=== PATIENT | female | born 1990 | race Caucasian/White ===

== ENCOUNTER 2020-05-09 10:55 | Outpatient (REF) | payer OTHER, SELFPAY ==
[2020-05-09 11:20] LABS: MANUAL DIFF FLAG NO
[2020-05-09 11:22] LABS: Basophils Absolute Auto 0.1 X10*3/uL (0.0-0.2); Basophils Percent Auto 0.8 % (0-2); Eosinophils Absolute Auto 0.1 X10*3/uL (0.0-0.4); Eosinophils Percent Auto 1.2 % (0-4); Hematocrit 39.6 % (37-47); Hemoglobin 13.3 g/dl (12.0-16.0); Imm Gran Abs Auto 0.01 X10*3/uL (0.00-0.03); Imm Gran Pct Auto 0.2 % (0.0-0.4); Lymphocytes Absolute Auto 1.5 X10*3/uL (1.2-4.9); Lymphocytes Percent Auto 24.4 % (20-40); Mean Corpuscular HGB Conc 33.6 g/dl (31.0-35.0); Mean Corpuscular Hemoglobin 30.5 pg (27.0-33.0); Mean Corpuscular Volume 90.8 fL (80-98); Mean Platelet Volume 10.3 fL (9.4-12.3); Monocytes Absolute Auto 0.5 X10*3/uL (0.1-1.2); Monocytes Percent Auto 7.7 % (2-11); Neutrophils Absolute Auto 3.9 X10*3/uL (2.0-8.3); Neutrophils Percent Auto 65.7 % (45-73); Platelet Count 315 X10*3/uL (160-400); Red Blood Count 4.36 X10*6/uL (4.20-5.50); Red Cell Distribution Width 12.6 % (11.0-16.0); White Blood Count 5.9 X10*3/uL (4.8-10.8)
[2020-05-09 11:41] LABS: Alanine Aminotransferase 13 U/L (0-31); Albumin Level 4.4 g/dL (3.5-5.0); Alkaline Phosphatase 70 U/L (39-117); Anion Gap 11 (12-20); Aspartate Amino Transferase 15 U/L (5-31); Bilirubin Total 0.5 mg/dL (0.0-1.0); Blood Urea Nitrogen 13 mg/dL (9-16); Calcium 9.3 mg/dL (8.4-10.2); Carbon Dioxide 24 mmol/L (22-29); Chloride 108 mmol/L (96-108); Cholesterol 237 mg/dL; Estimated Glomerular Filt Rate > 60; Glucose Fasting 85 mg/dL (60-99); HDL Cholesterol 48 mg/dL; LDL Cholesterol Calculated 177 mg/dl; Potassium 4.4 mmol/l (3.3-5.1); Sodium 139 mmol/L (135-145); Total Protein 7.1 g/dL (6.5-8.0); Triglycerides 62 mg/dL
[2020-05-09 12:02] LABS: Free T4 (Free Thyroxine) 0.93 ng/dL (0.71-1.85); Thyroid Stimulating Hormone 1.96 uIU/mL (0.32-4.0)
== END 2020-05-09 10:56 | disposition home or self-care (01) ==
LOC: HO.LAB 10:55
PROVIDERS: PCP Registered Nurse; Visit Provider Registered Nurse
DX: Z00.00 Encounter for general adult medical examination without abnormal findings (principal); R63.5 Abnormal weight gain; Z13.6 Encounter for screening for cardiovascular disorders
CPT/HCPCS: 36415; 80053; 80061; 84439; 84443; 85025

== ENCOUNTER 2024-07-10 08:28 | Emergency (ER) | payer OTHER, SELFPAY ==
[2024-07-10 08:29] VITALS: BP 146/85; PULSE 98; RESP 20; TEMP 36.8; O2SAT 98; BMI 33.8
--- NOTE | 2024-07-10 14:26 | ED_ITS ---
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 States dog is up-to-date on vaccinations and she personally is up-to-date on vaccinations. Denies injury to other area. Denies vision change/loss Related Data Previous Rx's ?Medication ?Instructions ?Recorded bacitracin 500 unit/gram topical 1 appl topical BID #30 grams 07/10/24 ointment metronidazole 500 mg tablet 500 mg PO Q8H 7 days #21 tabs 07/10/24 sulfamethoxazole 800 1 tab PO Q12H 7 days #14 tabs 07/10/24 mg-trimethoprim 160 mg tablet (Bactrim DS) Allergies Allergy/AdvReac Type Severity Reaction Status Date / Time amoxicillin Allergy Rash Verified 07/10/24 08:32 Review of Systems Review of Systems: Yes all other systems are reviewed and are negative Constitutional: Constitutional: Reports as per HPI [facility] Past Medical History Attestation statement: The following information was validated with the patient. Source: old records reviewed Social History Social History Advance Directives: No Advance Directives Information Provided: Yes Do you have a plan to hurt others: No Plan Physical Exam ED Vital Signs: Vital Signs - 24 hr 07/10/24 08:29 07/10/24 14:36 Temperature 98.2 F 98.2 F Pulse Rate 98 98 Respiratory Rate 20 20 Blood Pressure 146/85 H 146/85 H Pulse Oximetry 98 98 Oxygen Delivery Method Room Air Room Air BMI result Body Mass Index 33.8 Const General: cooperative, healthy appearing and no acute distress Orientation/consciousness: patient oriented x3 Limitations: no limitations HENMT Other: 1.5 cm superficial laceration noted to right cheek, periorbital region. Closed. No active bleeding. no palpable step-off. EOMs intact without discomfort or pain. Head: Yes normal to inspection and Yes atraumatic Ears: hearing grossly normal bilaterally General nose exam: Normal external nose present Face and sinus: Yes normal facial exam Eyes Eyelids: Yes eyelids normal Conjunctivae: conjunctivae normal Pupils: Equal, round and reactive pupils present EOM: EOMs intact bilaterally Direct Ophthalmoscopy: no photophobia Neck Neck: Yes normal visual inspection and Yes no meningeal signs Resp Effort & Inspection: normal respiratory effort and no respiratory distress Cardio Rate: regular rate Neuro General: patient oriented x3, tone normal and no meningeal signs Cranial nerves: Yes CN's II-XII intact bilaterally and Yes Equal, round and reactive pupils present Gait exam (Neuro): Normal gait present Extrem General: Yes normal to inspection Medical Decision Making Medical Decision Making MDM Narrative: 34-year-old female with no significant past medical history presenting to the ED complaining of dog bite to right cheek 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 On exam vital signs stable, NAD, nontoxic appearing, physical exam as noted above. Superficial laceration noted to right cheek with appropriate wound healing at this time, wound closed with scabbing. No active bleeding. No need for wound repair. Patient and dog up-to-date on vaccinations. No evidence of cellulitis Plan: P.o. antibiotics, PCP follow-up Please refer to course for remaining clinical decision making, interpretation of labs/imaging results, and discussions with consultants and/or family members. Differential Diagnosis Differential Diagnoses: The differential diagnosis associated with the presentation includes As above External Record Review External record reviewed: Inpatient record, Office record, Outpatient record, Prior outpatient labs, Prior outpatient radiology, Primary care record and Outside ED record Tests considered The following testing was considered but not selected: As above Prescription Management I considered prescription management with: Antibiotic Chronic Conditions Patient?s care impacted by: Other Social Determinants Patient?s care significantly limited by Social Determinants of Health including: Other Social Determinant of Health Discharge Plan Discharge Clinical Impression: Dog bite Patient Disposition: Home, Self-Care Instructions: Animal Bite (ED) Additional Instructions: Please take Flagyl and Bactrim as prescribed until completion Please use topical antibiotic ointment If area begins look infected, is red, there is pus drainage or you have fever return to the ED Please have close follow-up with your PCP Dog bites have high likelihood of getting infected Once scab is healed apply anti scar cream like Mederma Prescriptions: New sulfamethoxazole-trimethoprim [Bactrim DS] 800-160 mg tablet 1 tab PO Q12H 7 Days Qty: 14 0RF metronidazole 500 mg tablet 500 mg PO Q8H 7 Days Qty: 21 0RF bacitracin 500 unit/gram ointment 1 appl topical BID Qty: 30 0RF Referrals: Philomena Burks PA-C [Primary Care Provider] - 5 days Interventions: ED Discharge Assessment Last Done: 07/10/24 14:36 Discharge Date/Time: 07/10/24 14:37 Print Language: Irish
[2024-07-10 14:36] VITALS: BP 146/85; PULSE 98; RESP 20; TEMP 36.8; O2SAT 98
--- OUTSIDE RECORDS SUMMARY | 2024-07-10 15:47 | XMS_ITS | Data Portability ---
Author Organization [facility], Main Office Address [address] [facility] [address] [place] [address] Care Team Providers Care Paleology Teacher Name Role Phone KATE MIRAMONTES Rn Ambulatory JED BURKS Primary Care Provider [phone] Assessment Encounter Date Assessment Date Assessment LastModified by Organization Details LastModified Time 08/17/2022 08/17/2022 This service was provided using telemedicine. Patient consented to video & audio visit Patient was located in the [facility]. Provider was located in the office. No other persons participated in the telemedicine visit except for the patient unless otherwise indicated here. {{}} Total time of visit was 18 minutes. [email or web address] Not available 08/17/2022 09:57:05 09/28/2022 09/28/2022 This service was provided using telemedicine. Patient consented to video & audio visit Patient was located in the [facility]. Provider was located in the office. No other persons participated in the telemedicine visit except for the patient unless otherwise indicated here. {{}} Total time of visit was 18 minutes. [email or web address] Not available 09/28/2022 10:45:26 12/28/2022 12/28/2022 This service was provided using telemedicine. Patient consented to video & audio visit Patient was located in the [facility]. Provider was located in the office. No other persons participated in the telemedicine visit except for the patient unless otherwise indicated here. {{}} Total time of visit was 16 minutes. [email or web address] Not available 12/28/2022 10:42:29 Plan of Treatment Reminders Order Date Submit Date Provider Last Modified By Organization Details Last Modified Time Details Appointments PE EST 2024 01:00P M Jed Burks PA-C Not available Not available Not available Lab lipid panel , serum 2022 023 [facility], [address], [address], [place], [address], 07/01/2022 13:28:45 CMP, serum or plasm a 2022 023 [email or web address] [facility], [address], [address], [place], [address], 01/27/2023 13:07:47 CBC w/ auto diff 2022 023 [email or web address] [facility], [address], [address], [place], [address], 01/27/2023 13:07:47 TSH, serum or plasm a 2022 023 [facility], [address], [address], [place], [address], 07/01/2022 13:28:46 lipid panel , serum 2023 024 [facility], [address], [address], [place], [address], 07/13/2023 11:22:38 CMP, serum or plasm a 2023 024 [email or web address] [facility], [address], [address], [place], [address], 02/08/2024 09:34:58 CBC w/ auto diff 2023 024 [email or web address] [facility], [address], [address], [place], [address], 02/08/2024 09:34:59 TSH, serum or plasm a 2023 024 [facility], [address], [address], [place], [address], 07/13/2023 11:22:[address] refer ral - brandan rns for ADHD, inatt entio n, diff brandan ntrat ing, finis mariya tasks . has anxie ty and depre ssion / grief . 2023 024 [email or web address] [facility], [address] [facility] [address], [place], [place], [address], 01/09/2024 09:58:35 Procedures None recor ded. Surgeries None recor ded. Imaging None recor ded. Medication Orders hydro xyzin e pamoa te 25 mg capsu le 2022 023 raz [facility] #[id number], [facility] [place], [place], [phone], 09/28/2022 10:36:36 sumat ripta n 50 mg table t 2022 023 [id number], [address] [place], [place], [id number], 08/17/2022 09:52:11 bupro pion HCl XL 150 mg 24 hr table t, exten ded relea se 2022 023 [facility], [address] [place], [place], [id number], 08/17/2022 09:50:40 bupro pion HCl XL 150 mg 24 hr table t, exten ded relea se 2022 023 [facility], [facility] [place], [place], [id number], 09/28/2022 10:45:15 escit alopr am 20 mg table t 2022 023 [facility], [facility] [place], [place], [phone], 12/28/2022 10:41:51 Patient TargetsNo targets recorded. Patient Instructions Encounter Date Encounter Id Patient Instructions Last Modified By Organization Details Last Modified Time 07/01/2022 [id number] adjustment disorder: care instructions [email or web address] Not available 07/01/2022 13:29:43 grief (actual/anticipat ed): care instructions [email or web address] Not available 07/01/2022 13:29:43 call or return for worsening or concerns [email or web address] Not available 07/01/2022 13:29:18 08/17/2022 [id number] anxiety disorder : care instructions [email or web address] Not available 08/17/2022 09:53:01 depression treatment: care instructions [email or web address] Not available 08/17/2022 09:53:01 call or return for worsening or concerns [email or web address] Not available 08/17/2022 09:52:24 09/28/2022 [id number] anxiety disorder : care instructions [email or web address] Not available 09/28/2022 10:45:07 depression treatment: care instructions jthabet Not available 09/28/2022 10:45:07 12/28/2022 [id number] anxiety disorder : care instructions [email or web address] Not available 12/28/2022 10:42:35 depression treatment: care instructions [email or web address] Not available 12/28/2022 10:42:36 To call or retur n for worsening or concerns [email or web address] Not available 12/28/2022 10:42:18 07/13/2023 [id number] adjustment disorder: care instructions jthabet Not available 07/13/2023 11:22:20 grief (actual/anticipat ed): care instructions [email or web address] Not available 07/13/2023 11:22:19 To call or retur n for worsening or concerns [email or web address] Not available 07/13/2023 11:21:20 Reason for Referral Neuropsychologist Referral f or Inattention concerns for ADHD, inattention, diff concentrating, finishing tasks. has anxiety and depression/ grief. Referring Physician: Jed Burks, Family Medicine, Encounter Date: 07/13/2023 Problems Name Problem SNOMED Code Status Onset Date Resolution Date Notes Provider Name and Address Organization Details Recorded Time Anxiety state 034813469 Active 2013 Not Available [facility] 3 08:14:25 Follow-u p encounte r Completed 201204/17/2018 [place] Juan [facility] 8 13:22:04 Adult health examinat ion Active 2013 Not Available [facility] 3 08:14:25 Administ ration of diphther ia and tetanus vaccine Completed 201104/17/2018 AISLIN[place] Juan [facility] 8 13:21:58 Screenin g for malignan t neoplasm of cervix Completed 201304/17/2018 AISLIN[place] Juan [facility] 8 13:22:10 Follow-u wilberto encounte r Completed 201301/06/2014 RECORDED 11/16/19 14 2:06PM BY STEPH BRYAN MA, ANNOTATI ON/ADDEN DUM [place] Juan [facility] 8 13:22:04 Tobacco user 913571530 Completed 201304/17/2018 AISLIN[place] Juan [facility] 8 13:33:07 History of clinical finding in subject 165066430 Completed 201304/17/2018 AISLIN[place] Juan [facility] 8 13:22:01 Overweig ht 068656439 Active 2013 Not Available [facility] 3 08:14:25 Administ ration of diphther ia and tetanus vaccine Completed 201301/06/2014 RECORDED 11/16/19 14 2:06PM BY STEPH BRYAN MA, ANNOTATI ON/ADDEN DUM Steph [facility], [place] [facility] 13:[facility]58 Headache 57952656 Active Not Available [facility] 3 08:14:25 Ex-smoke r 8154936 Active 2017 Not Available [facility] 3 08:14:25 COVID-19 494272085 Active 2021May 2021 Not Available [facility] 3 08:14:25 Administ ration of viral vaccine Active 2021 Not Available [facility] 3 08:14:25 Generali zed anxiety disorder 77599210 Active 2021 Not Available [facility] 3 08:14:25 Recurren t major depressi ve episodes , moderate 577246343 Active 2021 Not Available [facility] 3 08:14:25 Adjustme nt disorder with mixed emotiona l features 46567607 Active 2021 Not Available [facility] 3 08:14:25 Fatigue 07329600 Active 2022 Not Available [facility] 3 08:14:25 Inattent ion 89259451 Active 2023 DAVIS Perkins [facility] [address], [place], [address] , [facility] 4 11:23:07 Problem Notes None recorded. Procedures Surgical History Date Name Laterality Status Provider Name and Address Organization Details Recorded Time 08/16/2020 Date of Last [facility] Smear [facility] [address], [address], [facility] 07/13/2023 11:20:10 No surg proc w/in 30 days completed Steph casey MA [facility] 04/17/2018 13:35:22 Imaging Results None recorded. Procedure Notes None recorded. Medical Equipment None Reported. Allergies Allergen ID Allergen Name Allergen Category Reaction Reaction Severity Criticality Documentation Date Start Date Code Code System Note Provider Name and Address Organization Details Recorded Time 07850 amoxicill in medicatio n rash Not available Not available 06/03/2015 723 RxNorm Mary Alice Paredes MA [facility] 6 14:22:51 Medications Name Sig Start Date Stop Date Status Note LastModified by Organization Details LastModified Time cryselle-28 .3-30 mg-mcg tabs active Not Available Not Available Not Available sumatriptan 25 mg tablet Take one tablet at onset of headache, may repeat dose every 2 hours as needed. NOT TO EXCEED 8 TABLETS IN 24 HOURS. 04/17 completed Not Available Not Available Not Available sumatriptan 50 mg tablet TAKE AT ONSET OF HEADACHE/ AURA. MAY REPEAT DOSE EVERY 2 HoURS X 4. NOT TO EXCEED 200MG IN 24 HOURS 2022 active Not Available Not Available Not Avai lable lorazepam 0.5 mg tablet TAKE 1 TABLET BY MOUTH TWICE DAILY FOR 15 DAYS DIRECTED 04/27 completed Not Available Not Available Not Available misoprostol 200 mcg tablet 01/27 completed Not Available Not Available Not Available lorazepam 1 mg tablet TAKE 1 TABLET BY MOUTH TWICE DAILY FOR 14 DAYS DIRECTED 09/28 completed PRN Not Available Not Available Not Available ParaGard T 380A 380 square mm intrauterin e device Take 1 device every day by intrauter ine route around the clock. active Not Available Not Available No t Available hydroxyzine pamoate 25 mg capsule TAKE 1 CAPSULE BY MOUTH FOUR TIMES DAILY NEEDED 09/28 completed Not Available Not Available Not Available Norberte (28) 0.3 mg-30 mcg tablet Take 1 tablet every day by oral route. 04/17 completed Not Available Not Available Not Available escitalopra m 10 mg tablet TAKE 1 TABLET BY MOUTH DAILY active Not Available Not Available No t Available escitalopra m 20 mg tablet TAKE 2 TABLETS BY MOUTH EVERY DAY DIRECTED 2023 active Not Available Not Available Not Avai lable bupropion HCl XL 150 mg 24 hr tablet, extended release TAKE 1 TABLET BY MOUTH EVERY DAY DIRECTED 2024 active Not Available Not Available Not Avai lable Vitals Date Recorded Body height Body mass index (BMI) Body weight Heart rate Oxygen saturation Oxygen saturation in Arterial blood by Pulse oximetry Body temperature Systolic blood pressure Diastolic blood pressure Provider Name and Address Organization Details Last Updated DateTime 3 153.67 cm 34.6 kg/m2 70649.3 3 g 94 /min 97 % 97 % 97.7 [degF] 131 mm[Hg] 87 mm[Hg] Cherise Dumas MA [facility] 3 13:13:38 Date Recorded Body height Provider Name an d Address Organization Details Last Updated DateTime 08/17/2022 153.67 cm [facility] 08/17/2022 09:36:37 Date Recorded Body height Provider Name an d Address Organization Details Last Updated DateTime 09/28/2022 153.67 cm [facility] 09/28/2022 10:39:24 Date Recorded Body height Provider Name an d Address Organization Details Last Updated DateTime 12/28/2022 153.67 cm Mell Martinez MA [facility] 12/28/2022 10:26:39 Date Recorded Body height Body mass index (BMI) Body weight Oxygen saturation Oxygen saturation in Arterial blood by Pulse oximetry Heart rate Body temperature Systolic blood pressure Diastolic blood pressure Provider Name and Address Organization Details Last Updated DateTime 4 153.67 cm 33.4 kg/m2 79164.7 7 g 98 % 98 % 89 /min 97.7 [degF] 113 mm[Hg] 74 mm[Hg] Mell Martinez MA [facility] 4 11:04:58 Social History Question Answer Notes LastModified by Organizat ion Details LastModified Time Tobacco Smoking Status Former Smoker [place] William [facility] 04/17/2018 13:35:09 Do You Have An Advance Directive? No HCP Declined [email or web address] Information not available 06/29/2021 What Is Your Level Of Alcohol Consumption? Occasional [email or web address] Information not available 07/13/2023 Is Blood Transfusion Acceptable In An Emergency? Yes Information not available 06/03/2015 What Is Your Level Of Caffeine Consumption? Moderate 2-3 Cup Coffee Daily [email or web address] Information not available 07/01/2022 How Much Tobacco Do You Chew? None Information not available 04/17/2018 In The 14 Days Before Symptom Onset, Have You Had Close Contact With A Laboratory-confi rmed COVID-19 While That Case Was Ill? No [email or web address] Information not available 06/29/2021 In The 14 Days Before Symptom Onset, Have You Had Close Contact With A Person Who Is Under Investigation For COVID-19 While That Person Was Ill? No [email or web address] Information not available 06/29/2021 Have You Been To An Area Known To Be High Risk For COVID-19? No Information not available 06/29/2021 Are You Currently Employed? Yes Information not available 06/03/2015 What Type Of Diet Are You Following? REGULAR Information not available 04/17/2018 Which Illicit Or Recreational Drugs Have You Used? Marijuana Information not available 07/01/2022 Do You Or Have You Ever Used E-cigarettes Or Vape? 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 1-5yearssince lastcigarette [email or web address] Information not available 06/29/2021 Live Alone Or With Others? With Others Boyfriend Information not available 07/01/2022 Do You Take Precautions To Prevent Distracted Driving? Yes Information not available 04/17/2018 How Often Do You Need To Have Someone Help You When You Read Instructions, Pamphlets, Or Other Written Material From Your Doctor Or Pharmacy? Never Information not available 04/17/2018 Have You Served In The ? No Information not available 04/17/2018 Have You Or Anyone In Your Household Had Any Of The Following Symptoms In The Last 14 Days: Sore Throat, Cough, Chills, Body Aches For Unknown Reasons, Shortness Of Breath For Unknown Reasons, Loss Of Smell, Loss Of Taste, Fever At Or Greater Than 100 Degrees Fahrenheit? No Information not available 01/28/2020 Are You Or Anyone In Your Household A Health Care Provider Or Emergency Responder? No Information not available 01/28/2020 To The Best Of Your Knowledge Have You Been In Close Proximity To Any Individual Who Tested Positive For COVID-19? No Information not available 01/28/2020 What Was The Date Of Your Most Recent Tobacco Screening? 07/13/2023 [email or web address] Information not available 07/13/2023 Do You Use Protection During Sex? No Information not available 04/17/2018 Seat Belts Used Routinely Yes [email or web address] Information not available 06/29/2021 Are You Sexually Active? Yes Information not available 04/17/2018 Smoke Alarm In Home No [email or web address] Information not available 06/29/2021 At What Age Did You Start Smoking Tobacco? 16 Quit At 18 Information not available 04/17/2018 Are You Passively Exposed To Smoke? No Information not available 04/17/2018 Do You Or Have You Ever Used Smokeless Tobacco? Never Used Smokeless Tobacco [email or web address] Information not available 04/14/2020 How Much Tobacco Do You Smoke? 1 PPW Social Smoker [email or web address] Information not available 04/14/2020 Do You Use Any Illicit Or Recreational Drugs? Yes Information not available 07/01/2022 Do You Use Sunscreen Routinely? Yes Information not available 04/17/2018 How Many Years Have You Smoked Tobacco? 2 Information not available 04/14/2020 Sex: Female Functional Status Question Answer Note LastModified by Organizat ion Details LastModified Time Are you able to walk? YESWOREST [email or web address] Information not available 06/29/2021 Are you able to care for yourself? Yes Information not available 06/03/2015 What is your exercise level? Occasional Information not available 04/17/2018 Mental Status None recorded. Family History Relationship Description Onset Age of this Age Resolved Age Notes LastModified by Organization Details LastModified Time Paternal Grandmother Diabetes mellitus [email or web address] Not available 2015 14:22:26 Father Excision of melanoma [email or web address] Not available 06/29 10:52:43 Mother Depressive disorder [email or web address] Not available 06/29 11:05:33 Mother Failure to thrive 66 johann ia, uterin e cancer [email or web address] Not available 07/01/2022 13:23:48 Notes:no Family Hx of breast cancer or colon cancer Medical History No medical history recorded. Gynecological History Statement/Question Response Menses Monthly Y Duration of Flow (days) 7 Date of Last Pap Smear 08/16/2020 Flow Moderate Current Control Method IUD LMP Approximate Sexually Active? Y Obstetrics History GPAL:G 1 P 0 0 1 0 Type Value Induced 1 Total 1 Immunizations Vaccine Type Date Status Note Provider Name and Address Organization Details Recorded Time COVID-19, mRNA, LNP-S, PF, 30 mcg/0.3 mL dose 10/13/19 21 completed Not Available [facility] 12/06/2022 08:14:25 COVID-19, mRNA, LNP-S, PF, 30 mcg/0.3 mL dose 09/22/19 21 completed Not Available [facility] 12/06/2022 08:14:25 Tdap 06/29/19 22 completed Not Available [facility] 12/06/2022 08:14:25 Influenza, split virus, quadrivalent, PF 04/17/20 18 cancelled patient objection Not Available [facility] 06/15/2019 02:22:15 Influenza, split virus, quadrivalent, PF 05/15/20 18 cancelled patient objection Not Available [facility] 06/15/2019 02:22:16 Tdap 01/25/20 12 completed Not Available [facility] 12/06/2022 08:14:25 DTaP 08/22/18 89 completed Not Available [facility] 12/06/2022 08:14:26 DTaP 10/22/18 89 completed Not Available [facility] 12/06/2022 08:14:26 DTaP 12/22/18 89 completed Not Available [facility] 12/06/2022 08:14:26 DTaP 06/24/18 91 completed Not Available [facility] 12/06/2022 08:14:26 DTaP 02/09/19 94 completed Not Available [facility] 12/06/2022 08:14:26 Tdap 09/04/19 06 completed Not Available [facility] 12/06/2022 08:14:25 Hep B, adult 09/21/19 00 completed Not Available [facility] 12/06/2022 08:14:25 Hep B, adult 11/01/19 00 completed Not Available [facility] 12/06/2022 08:14:25 Hep B, adult 02/20/20 01 completed Not Available [facility] 12/06/2022 08:14:25 Hib (HbOC) 06/24/18 91 completed Not Available [facility] 12/06/2022 08:14:26 MMR 10/05/18 90 completed Not Available [facility] 12/06/2022 08:14:25 MMR 09/21/19 00 completed Not Available [facility] 12/06/2022 08:14:25 IPV 08/22/18 89 completed Not Available [facility] 12/06/2022 08:14:25 IPV 10/22/18 89 completed Not Available [facility] 12/06/2022 08:14:25 IPV 12/22/18 89 completed Not Available [facility] 12/06/2022 08:14:25 IPV 06/24/18 91 completed Not Available [facility] 12/06/2022 08:14:25 IPV 02/09/19 94 completed Not Available [facility] 12/06/2022 08:14:25 Td (adult), 2 Lf tetanus toxoid, preservative free, adsorbed 09/21/19 00 completed Not Available [facility] 12/06/2022 08:14:25 varicella 01/10/19 98 completed Not Available [facility] 12/06/2022 08:14:25 Past Encounters Encounter ID Performer Location Encounter Start Date Encounter Closed Date Diagnosis/Indication Diagnosis SNOMED-CT Code Diagnosis ICD10 Code Diagnosis Note [id number] auto[address]Comm erce [address] [facility] [facility] [place] [address] 01/25/2012 00:00:00 [id number] autoEComm erce [address] [facility] [facility] [place] [address] 11/15/2013 00:00:00 [id number] Benjamin Parkinson MD Main Office [address] [facility] [address] [place] [address] 06/03/2015 13:54:11 06/03/2015 14:56:20 Headache 15680436 R51 2nd episode of headache with light sensitivit y, blurred vision, the first episode also associated with bright light from right eye- not this episode. She wears glasses and is due for an updated eye exam, will refer to opthalmolo gy for further eval, will also get blood work. If all negative likely migraine though this is her 2nd episode. She will try sumatripta n to see if this helps relieve headache. Encouraged to stay well hydrated, try to pinpoint headache triggers and avoid these. [id number] Mega Talley MD Main Office [address] [place] [address] 04/17/2018 13:10:22 04/17/2018 14:06:04 Adult health examination 527620248 Z00.00 HM UTD, she declines flu vaccine and lbs today. Immunization refused 275 824845 Z28.21 Headache 88154444 R51 Resolved after getting IUD. Anxiety 56349690 F41.9 Her TONG score is a 3, i explaiend this is minimal anxiety but she notes she only has sx at work. explained different treatments . benzo not an option if her sx are only problemati c at work as she should not drive or work while on med. she wishes to start a low dose SSRI for this. SSRIs discussed in detail. may feel worse before she feels better, should not miss doses or stop med abruptly. It will take a full 4-6 weeks for med to kick in, you will not know of med is helpful until that time. f/u in 4-6 weeks. If any problems please call or return. [id number] DAVIS Perkins Main Office [address] [place] [address] 05/15/2018 12:46:08 05/15/2018 13:30:40 Needs influenza immunization 706789385 Z23 Anxiety state 220445828 F41.1 doing fairly well on 10mg escitalopr am, she wishes to stay on 10mg for now. will be due for refill next month and will call to let me know if she wants to increase the dose or stay at 10mg. also encouraged her to try taking med in the morning as she is having some trouble sleeping. [id number] Jed Burks [facility] Main Office [address] [place] [address] 01/28/2020 14:09:10 01/28/2020 14:47:41 Anxiety state 493127211 F41.1 will refill med, 10mg is working well for her. F/U in 2 months for PE. Major depr essive disorder 790897034 F32.0 [id number] DAVIS Perkins Main Office [address] [address] [place] [address] 04/14/2020 14:24:56 04/14/2020 15:02:19 Adult health examination 623312900 Z00.00 HM UTD, she declines flu vaccine today. Anxiety state 824301855 F41.1 doing ok, lexapro 10mg Abnormal weight gain 161 266837 R63.5 concerned about weight gain. she is eating poorly, not exercising , recommend quick HIIT workouts or short you tube videos. more walking / movement during free times. dietary changes Screening for cardiovascular system disease 332704690 Z13.6 [id number] DAVIS Perkins Main Office [address] [address] [place] [address] 06/29/2021 10:52:34 06/29/2021 11:54:02 Adult health examination 433739319 Z00.00 HM UTD, she declines flu vaccine today. due for pap, she will schedule. Anxiety state 090265902 F41.1 increase lexapro to 20mg he has been taking 20mg for a few months now. Screening for cardiovascular system disease 033942961 Z13.6 Screening for malignant neoplasm of cervix 390228944 Z12.4 Administra tion of viral vaccine 62967865 Z23 Headache 62352643 R51.9 sumatripta n as needed or migraines associated with menses every other period. Call/ return if not helpful. [id number] [facility] [address] [address] [place] [address] 02/16/2022 08:50:48 02/16/2022 15:56:25 Generalized anxiety disorder 02021079 F41.1 TONG score 11/16 Recurrent major depressive episodes, moderate 568286730 F33.1 PHQ-9 score 05/24. Her Mother is going on hospice and she is her HCP. will add lorazpeam to use as needed- no driving or alcohol with med, do not overuse med. [id number] Jed Burks [facility] [place] [facility] [address] [place] [address] 04/27/2022 08:30:12 04/27/2022 13:45:53 Generalized anxiety disorder 75602895 F41.1 TONG score 7. Anxiety is currently at very high levels. Her Mom is in her final stages of life, on hospice in a SNF. Patient is struggling with both anxiety and depression . Recurrent major depressive episodes, moderate 946615120 F33.1 PHQ-9 score 01/22. Her Mother is on hospice and she is her HCP. will add lorazepam to use as needed- no driving or alcohol with med, do not overuse med. Adjustment disorder with mixed emotional features 95743300 F43.23 grieving for her Mother. [id number] DAVIS Perkins Main Office [address] [address] 07/01/2022 12:56:24 07/01/2022 13:51:24 Adult health examination 694553228 Z00.00 UTD Anxiety state 377813537 F41.1 lexapro is helpful but still struggling with panic attacks, will try hydroxyzin e as needed. Screening for cardiovascular system disease 272015809 Z13.6 Headache 61596763 R51.9 sumatripta n as needed for migraines associated with menses every other period. Call/ return if not helpful. Fatigue 72536196 R53.83 Adjustment disorder with mixed emotional features 85295768 F43.23 grieving for her Mother. [id number] Jed Burks [facility] [address] [address] 08/17/2022 08:43:12 08/17/2022 11:04:33 Recurrent major depressive episodes, moderate 481672735 F33.1 Do not miss doses or stop medication s abruptly. Start wellbutrin in am, it can be activating and cause vivid dreams. Generalize d anxiety disorder 69887529 F41.1 continue lexapro as directed, hydroxyzin e as needed. Headache 26536179 R51.9 sumatripta n as needed for migraines associated with menses every other period. Call/ return if not helpful. [id number] Jed Burks, [facility] [address] [address] [place] [address] 09/28/2022 09:59:14 09/28/2022 10:49:55 Recurrent major depressive episodes, moderate 824473779 F33.1 Do not miss doses or stop medication s abruptly. continue wellbutrin in am, it can be activating and cause vivid dreams. Generalize d anxiety disorder 61017440 F41.1 continue lexapro as directed. Headache 53241513 R51.9 sumatripta n as needed for migraines associated with menses every other period, sumatripot an seemed helpful around her period. [id number] Jed Burks [facility] [address] [address] [facility] [address] 12/28/2022 10:01:54 12/28/2022 11:15:17 Recurrent major depressive episodes, moderate 527767300 F33.1 Do not miss doses or stop medication s abruptly. continue wellbutrin in am, it can be activating and cause vivid dreams. Generalize d anxiety disorder 08478584 F41.1 continue lexapro as directed. [id number] Jed Burks [facility] Main Office [address] [address] 07/13/2023 10:57:35 07/13/2023 11:31:36 Adult health examination 156041374 Z00.00 UTD, due for pap this year Anxiety state 987509191 F41.1 continue lexapro and bupropion Screening for cardiovascular system disease 444312377 Z13.6 Headache 15903348 R51.9 sumatripta n as needed for migraines associated with menses every other period. Call/ return if not helpful. Fatigue 27293576 R53.83 Adjustment disorder with mixed emotional features 70602977 F43.23 grieving for her Mother and now her dog Inattention 54995993 R41 .840 bupropion has not helped with her feelings of inattentio n, she would like to have neuropsych eval. Recurrent major depressive episodes, moderate 343679400 F33.1 Do not miss doses or stop medication s abruptly. continue wellbutrin in am, it can be activating and cause vivid dreams. Health Concerns Section Related Observation LastModified by Organization Detai ls LastModified Time None Recorded Concern Status LastModified by Organization Details LastModified Time None Recorded Advance Directives Directive N: HCP declined Payers Encounter Date Sequence Insurance Name Policy Number Policy Gan Covered Member ID Gan Member ID Guarantor Name 07/01/2022 1 [employer] (PPO) [id number] Ros C Collins [id number] 1 Ros C Collins 08/17/2022 1 [employer] [id number] Ros C Collins [id number] Ros C Collins 09/28/2022 1 [employer] [id number] Ros C Collins [id number] 1 Ros C Collins 12/28/2022 1 [employer] (PP[employer]) [id number] Ros C Collins [id number] 1 Ros C Collins 07/13/2023 1 [employer] ([employer]) [id number] Ros C Collins [id number] Ros C Collins Notes Date Note Type Note Provider Name and Address Organization Details Recorded Time 07/01/2022 text/html Generic HPI TemplateReported bypatient.Notes:Presen ts for PE.Mom was on hospice and in april 29, 2022. Has been struggling, comes and goes, some days better than others. Has a good support system. Her Dad is also in Custodial, the day after her Mom dies he was arrested for stealing money.More depression than anxiety, takign 40mg lexapro which is helping but has been having panic attacks, no specific triggers, wakes up with chest pressure. Takes lorazepam as needed but not that helpful.- Has sx of poor concentration, sometimes diff finishing tasks, feels all over the place, more heightened Jed Burks, [facility] [address] [address], [place], [address], [facility] 07/01/2022 13:54:19 08/17/2022 text/html Generic HPI TemplateReported bypatient.Notes:Video visit: Patient's Mom recently and she was her health care proxy, was very difficult for her. Her Dad is in half-way for 2 years- arrested in april.Having a difficult time focusing, Taking lexapro 40mg daily. Using lorazepam at bedtime if needed- about twice in the past 2 weeks. It does help with sleep a little. Uses hydroxyzine at bedtime if needed, not during the day- Struggling to get through the work day.- Sleeping fairly- depends on the night.- Her BF is supportive.- Wants to discuss adding wellbutrin. Jed Burks [facility]SHAQ [address] [place] [address] [address], [place], [address], [facility] 08/17/2022 09:57:38 09/28/2022 text/html Generic HPI TemplateReported bypatient.Notes:Video visit: Patient's Mom recently and she was her health care proxy, was very difficult for her. Her Dad is in half-way for 2 years- arrested in april.Having a difficult time focusing, Taking lexapro 40mg daily. Using lorazepam at bedtime if needed- about twice in the past 2 weeks. It does help with sleep a little. Uses hydroxyzine at bedtime if needed, not during the day- Struggling to get through the work day.- Sleeping fairly- depends on the night.- Her BF is supportive.- Wants to discuss adding wellbutrin. Video visit: 09/28/22: added wellbutrin at last visit, feeling a bit better.Taking lexapro 20mg daily and wellbutrin 150 in the morning. Is able to focus more, a vacation also helped.Sleeping better, is able to get through her work day, focusing a bit better. DAVIS Perkins [facility] [address], [place], [address], [facility] 09/28/2022 10:48:14 12/28/2022 text/html Generic HPI TemplateReported bypatient.Notes:Video visit: Patient's Mom recently and she was her health care proxy, was very difficult for her. Her Dad is in half-way for 2 years- arrested in april.Having a difficult time focusing, Taking lexapro 40mg daily. Using lorazepam at bedtime if needed- about twice in the past 2 weeks. It does help with sleep a little. Uses hydroxyzine at bedtime if needed, not during the day- Struggling to get through the work day.- Sleeping fairly- depends on the night.- Her BF is supportive.- Wants to discuss adding wellbutrin. 12/28/22:Takign lexapro 20mg and wellbutrin 150mg in the morning, working well together, has forgotten a couple times in the last 2 weeks, but can tell when she does.TONG score down to 07/19 and PHQ-9 02/22.Trying to enjoy summer. Sleeping ok, feels it will get better once she is back on track. Sleeps but not quality sleep. Jed Burks, DAVIS [address], [address], [facility] [place] 12/28/2022 10:50:00 07/13/2023 text/html Generic HPI TemplateReported bypatient.Notes:Edmund tse for PE.Mom was on hospice and in april 29, 2022. Has been struggling, comes and goes, some days better than others. Has a good support system. Her Dad is also in Custodial, the day after her Mom he was arrested for stealing money.- Has sx of poor concentration, sometimes diff finishing tasks, feels all over the place, more heightened - Her dog before , struggling with good and bad days, back on 20mg lexapro. Jed Burks, DAVIS [address] [facility] [address], [place], [address], [facility] [place] 07/13/2023 11:57:41 OBGyn Episode No OBEpisode recorded.
--- OUTSIDE RECORDS SUMMARY | 2024-07-10 15:47 | XMS_ITS | Patient Health Record ---
Author Organization [facility] Address [address] [facility] [address] [place] [address] Care Team Providers Care Hand Box Coverer Name Role Phone JED ESCOBAR Primary Care Provider Unavail able Elizabeth Madsen Unavailable [phone] Allergies Allergen (clinical drug ingredient) Drug/Non Drug Allergy documented on EMR Reaction Allergy Type Onset Date Status AMOXICILLIN Rash/Hives Drug Allergy Acti ve Reason For Referral No Information Medications Medication SIG (Take, Route, Frequency, Duration) Notes Start Date End Date Status Wellbutrin XL 150 MG 1 tablet in the morning Orally Once a day for 30 day(s) Unknown Dose Active Escitalopram Oxalate 10 MG TAKE 1 TABLET BY MOUTH DAILY Oral for 90 Active Paragard Intrauterine Copper - Intrauterine Inserted 06/19/2018 Active Immunizations Vaccine Route Administration Date Status Comme nts HPV (human papillomavirus), quadrivalent, 3 dose schedule Intramuscular 03/13/2012 Pending HPV (human papillomavirus), quadrivalent, 3 dose schedule Intramuscular 05/18/2012 Pending Social History Tobacco Use: Social History Observation Description Date Details (start date - stop date) Never Smoker NA - NA Tobacco Use/Smoking Question Answer Notes Are you a nonsmoker Alcohol Screen (Audit-C) Question Answer Notes Did you have a drink contain ing alcohol in the past year? Yes How often did you have a dri nk containing alcohol in the past year? 2 to 3 times a week (3 points) How many drinks did you have on a typical day when you were drinking in the past year? 1 or 2 drinks (0 point) Points 3 Interpretation Positive Section Notes: Problems Problem Type SNOMED Code ICD Code Onset Dates Problem Status W/U Status Risk Notes Problem Excessive and frequent menstruation (861126950) Excessive and frequent menstruation with regular cycle (N92.0) Active confirmed Problem Sexually transmitted infectious disease (5890501) Encounter for screening for infections with a predominantly sexual mode of transmission (Z11.3) Active confirmed Problem Atypical glandular cells on cervical Papanicolaou smear (840878487) Abnormal glandular Papanicolaou smear of cervix (795.00) Active confirmed Diag Problem Gynecological examination normal (461021005609279) Routine gynecological examination (V72.31) Active confirmed Major Plan Of Treatment Pending Test Test Name Order Date Test, Urine 06/19/2018 Insurance Providers Payer Name Payer Address Payer Phone Subscriber Number Group Number Insured Name Patient Relationship to Insured Coverage Start Date Coverage End Date [employer] [address] [place] [address] [id number] ERICH HOUSER Self - patient is the insured Medical (General) History Medical History History ICD Code Unspecified abnormal cytological finding s in specimens from cervix uteri R87.619 Molluscum Contagiosum Low grade squamous intraepit helial lesion on cytologic smear of cervix (LGSIL) R87.612 Excessive and frequent menstruation with regular cycle N92.0 Foreign body in vulva and vagina, initia l encounter T19.2XXA Surgical History Surgery Date(Month/Year) Colposcopy [place]
== END 2024-07-10 14:37 | disposition home or self-care (01) ==
PROVIDERS: Emergency Provider Emergency Medicine; PCP Registered Nurse
DX: S01.451A Open bite of right cheek and temporomandibular area, initial encounter (principal); R51.9 Headache, unspecified; W54.0XXA Bitten by dog, initial encounter; Y93.9 Activity, unspecified; Y92.89 Other specified places as the place of occurrence of the external cause; Y99.8 Other external cause status
CPT/HCPCS: 12011; 99282; 99283; 99284

== ENCOUNTER 2024-07-12 06:51 | Inpatient (IN) | payer OTHER, SELFPAY ==
--- NOTE | ~2024-07-12 | CT_ITS ---
EXAMINATION: CT MAXILLOFACIAL WITH IV CONTRAST HISTORY: concern for right sided facial abscess. TECHNIQUE: Serial 1.5 mm helically acquired images were obtained of the facial bones after the intravenous administration of 85 mL Omnipaque 350 per standard departmental protocol. Coronal and sagittal reformatted images were also obtained and evaluated. One or more of the following techniques was used for dose reduction: Automated exposure control, adjustment of the mA and/or kV according to patient size, use of iterative reconstruction technique. DLP: 329 mGy-cm COMPARISON: There are no prior studies for comparison. FINDINGS: The facial bones are intact. No fractures are identified. The globes are intact. There is a polyp versus mucous retention cyst in the right maxillary sinus. The remaining paranasal sinuses are clear. The mastoid air cells and middle ear cavities are normally pneumatized. The visualized portion of the brain is unremarkable. There is mild infiltration of the fat of the right cheek with associated skin thickening, consistent with cellulitis. No loculated fluid collection is seen to suggest abscess. CT/CT facial bones w IV con IMPRESSION: Findings consistent with right facial cellulitis. No evidence of an abscess. Electronically signed by: Sg David MD 07/12/2024 10:44 AM EST
[2024-07-12 06:59] VITALS: BP 126/78; PULSE 115; RESP 20; TEMP 36.9; O2SAT 98; BMI 33.2
--- NOTE | 2024-07-12 07:34 | ED.GENADULT ---
HPI - General Adult General Chief complaint: Skin/Abscess/Foreign Body Stated complaint: dog bite, possibly infected Time Seen by Provider: 07/12/24 07:33 Source: patient Mode of arrival: ambulatory Limitations: no limitations History of Present Illness ED Provider: Henna Snell PA-C HPI narrative: Patient is a 34 year old assigned female at with a history of anxiety and depression presenting to the emergency department today with concerns of worsening right facial infection. Patient states that she was bit by her dog on the face 2 days ago and was started on antibiotics (flagyl and bactrim) which she has been taking but her face has begun to hurt more and pus has begun to express from the wound, concerning her. Patient denies any dizziness, lightheadedness, abdominal pain, nausea, vomiting, fever, chills, blurry vision, double vision, loss of vision, chest pain, difficulty breathing, shortness of breath, back pain, night sweats, pain with urination, increased urinary frequency, increased urinary urgency, blood in her urine or stool, syncope or a near syncopal episode, bowel incontinence, bladder incontinence, or any other complaints at this time. Relieving factors: none Exacerbating factors: none Associated symptoms: denies other symptoms Treatments prior to arrival: none Related Data Home Medications ?Medication ?Instructions ?Recorded ?Confirmed bupropion HCl 150 mg 24 hr tablet, 150 mg PO DAILY 07/12/24 07/12/24 extended release escitalopram oxalate 20 mg tablet 40 mg PO DAILY 07/12/24 07/12/24 Previous Rx's ?Medication ?Instructions ?Recorded bacitracin 500 unit/gram topical 1 appl topical BID #30 grams 07/10/24 ointment metronidazole 500 mg tablet 500 mg PO Q8H 7 days #21 tabs 07/10/24 sulfamethoxazole 800 1 tab PO Q12H 7 days #14 tabs 07/10/24 mg-trimethoprim 160 mg tablet (Bactrim DS) Allergies Allergy/AdvReac Type Severity Reaction Status Date / Time amoxicillin Allergy Rash Verified 07/12/24 07:01 Review of Systems Constitutional: Constitutional: Reports no additional constitutional complaints, Denies chills, Denies fever(s) and Denies night sweats Eyes: Eyes: Reports no additional eye complaints, Denies blurry vision, Denies change in vision, Denies diplopia, Denies eye discharge, Denies loss of vision and Denies eye pain ENT: Denies dizziness Comments: pus from right facial wound Cardiovascular: Cardiovascular: Reports no additional cardiovascular complaints, Denies chest pain, Denies lightheadedness, Denies Loss of Consciousness and Denies dyspnea Respiratory: Respiratory: Reports no additional respiratory complaints and Denies dyspnea Gastrointestinal: Gastrointestinal: Reports no additional gastrointestinal complaints, Denies abdominal pain, Denies melena, Denies hematochezia, Denies change in bowel habits and Denies change in stool character Genitourinary: Genitourinary: Denies hematuria, Denies urinary frequency, Denies dysuria, Denies urinary incontinence, Denies urinary hesitancy and Denies urinary urgency Musculoskeletal: Musculoskeletal: Reports no additional musculoskeletal complaints, Denies numbness and Denies tingling Neurologic: Denies dizziness, Denies loss of vision, Denies numbness and Denies tingling Psychiatric: Psychiatric: Reports no additional psychiatric complaints Endocrine: Endocrine: Reports no additional endocrine complaints Hematologic/Lymphatic: Hematologic/Lymphatic: Reports no additional hematologic/lymphatic complaints Allergic/Immunologic: Allergic/Immunologic: Reports no additional allergic/immunologic complaints PMFSH Past Medical History Attestation statement: The following information was validated with the patient. Source: old records reviewed and nursing notes reviewed Medical History Recurrent major depressive episodes, moderate (02/16/22) Generalized anxiety disorder (02/16/22) Anxiety state (11/15/13) Adjustment disorder with mixed emotional features (04/27/22) Social History Social History Unable to assess alcohol history related to: Unable to respond Smoked in Last 30 Days: No Use of substances other than those prescribed or required for medical reasons: No Advance Directives: No Advance Directives Information Provided: Yes Do you have a plan to hurt others: No Plan Physical Exam ED Vital Signs: Vital Signs - 24 hr 07/12/24 06:59 07/12/24 10:22 Temperature 98.4 F 98.9 F Pulse Rate 115 H 68 Respiratory Rate 20 15 Blood Pressure 126/78 114/75 Pulse Oximetry 98 98 Oxygen Delivery Method Room Air Room Air BMI result Body Mass Index 33.2 Const General: cooperative, no acute distress, alert and awake Nutritional Appearance: well nourished Orientation/consciousness: patient oriented x3 Limitations: no limitations HENMT Other: Head: Yes normal to inspection and Yes atraumatic Ears: hearing grossly normal bilaterally and external ears normal General nose exam: Normal external nose present, no nasal discharge noted and no epistaxis Face and sinus: Yes other Mouth: Normal oral and palatal mucosa present, no drooling and no muffled voice Eyes General: appearance normal, both eyes and all related structures Periorbital: periorbital findings normal Eyelids: Yes eyelids normal Conjunctivae: conjunctivae normal Pupils: Equal, round and reactive pupils present EOM: EOMs intact bilaterally Neck Neck: Yes normal visual inspection, Yes full ROM and Yes no lymphadenopathy Chest Chest palpation & inspection: normal inspection of the chest Resp Effort & Inspection: normal respiratory effort and able to speak in complete sentences GI Inspection: Yes normal to inspection Neuro General: patient oriented x3, moves all extremities and CN's II-XI intact bilaterally Cranial nerves: Yes Equal, round and reactive pupils present Cognition (Neuro): normal cognition Extrem General: Yes normal to inspection, Yes full ROM and Yes capillary refill normal Psych Appearance: grossly normal Mental Status: mental status grossly normal Affect: normal affect Attitude: cooperative Thought process: Normal thought process present Thought content: Normal thought content present Insight: Good insight present (Psych) Medications Administered Discontinued Medications Generic Name Dose Route Start Last Admin Trade Name Mehdiq PRN Reason Stop Dose Admin Diphenhydramine HCl 25 mg 07/12/24 08:07 07/12/24 08:37 Diphenhydramine Hcl 50 Mg/Ml Vial IVPUSH 07/12/24 08:08 25 mg ONCE ONE Administration Piperacillin Sod/Tazobactam 50 mls @ 100 mls/hr 07/12/24 08:07 07/12/24 08:38 Sod 3.375 gm/ Sodium Chloride IV 07/12/24 08:36 100 mls/hr ONCE ONE Administration Iohexol 100 ml 07/12/24 10:19 07/12/24 10:20 Iohexol 350 Mg/Ml 100 Ml Infus..Btl IV 07/12/24 10:20 85 ml ONCE ONE Administration Lorazepam 1 mg 07/12/24 08:07 07/12/24 08:38 Lorazepam 2 Mg/Ml Vial IVPUSH 07/12/24 08:08 1 mg ONCE ONE Administration Medical Decision Making Medical Decision Making MDM Narrative: Patient is a 34 year old assigned female at with a history of anxiety and depression presenting to the emergency department today with concerns of worsening right facial infection. Patient's physical exam was as noted in the physical exam portion of this note. I was able to express some pus from the wound. Patient's blood work showed a mildly elevated CRP of 0.61 but were otherwise unremarkable. Patient's facial CT showed evidence of right sided facial cellulitis without abscess. Patient was given IV zosyn and given her allergy to Amoxicillin - it was given with Benadryl which she tolerated well. I spoke to the hospitalist team who agreed to admission. Patient's clinical presentation is not consistent with sepsis (@1056). I explained my physical exam findings as well as all test results to the patient. I answered all questions asked by the patient. Patient verbalized agreement and understanding with this treatment plan and admission. Differential Diagnosis Differential Diagnoses: The differential diagnosis associated with the presentation includes Right sided facial cellulitis Dog bite Admission/Observation Consideration of admission/observation: Escalation of care including admission/observation considered Patient admitted as noted in the MDM Rationale portion of this note. Consult Healthcare Provider Management of the patient was discussed with: Hospitalist (agreed to admission as noted in the MDM Rationale portion of this note.) Lab Data [facility] Lab Attestation statement: I reviewed the patient's lab results. My interpretation of these results are in the MDM Rationale portion of this note. 07/12/24 08:25 07/12/24 08:25 Labs: Lab Results 07/12/24 Range/Units 08:25 WBC 6.9 (4.8-10.8) X10*3/uL RBC 4.59 (4.20-5.50) X10*6/uL Hgb 13.3 (12.0-16.0) g/dl Hct 38.5 (37.0-47.0) % MCV 83.9 (80.0-98.0) fL MCH 29.0 (27.0-33.0) pg MCHC 34.5 (31.0-35.0) g/dl RDW 13.8 (11.0-16.0) % Plt Count 328 (160-400) X10*3/uL MPV 10.5 (9.4-12.3) fL Immature Gran % (Auto) 0.6 H (0.0-0.4) % Neut % (Auto) 72.3 (45-73) % Lymph % (Auto) 19.2 L (20-40) % Kendall % (Auto) 6.8 (2-11) % Eos % (Auto) 0.4 (0-4) % Baso % (Auto) 0.7 (0-2) % Lymph # (Auto) 1.3 (1.2-4.9) X10*3/uL Kendall # (Auto) 0.5 (0.1-1.2) X10*3/uL Eos # (Auto) 0.0 (0.0-0.4) X10*3/uL Baso # (Auto) 0.1 (0.0-0.2) X10*3/uL Abs Immat Gran (auto) 0.04 H (0.00-0.03) X10*3/uL Absolute Neuts (auto) 5.0 (2.0-8.3) x10*3/uL Absolute Nucleated RBC 0.000 (0.0-0.012) X10*3/uL Nucleated RBC % (auto) 0.0 (0.0-0.2) /100WBC ESR 10 (0-20) MM/HR Sodium 138 (135-145) mmol/L Potassium 3.7 (3.3-5.1) mmol/L Chloride 109 H (96-108) mmol/L Carbon Dioxide 16 L (22-29) mmol/L Anion Gap 17 (12-20) BUN 10 (9-16) mg/dL Creatinine 0.74 (0.5-1.4) mg/dL Estim Creat Clear Calc 96.4 Estimated GFR > 60 Random Glucose 83 (60-115) mg/dL Lactic Acid 1.0 (0.5-2.0) mmol/L Calcium 9.3 (8.4-10.2) mg/dL Total Bilirubin 0.5 (0.0-1.0) mg/dL AST 20 (5-31) U/L ALT 14 (0-31) U/L Alkaline Phosphatase 82 (39-117) U/L C-Reactive Protein 0.61 H (< or = 0.50) mg/dL Total Protein 7.7 (6.5-8.0) g/dL Albumin 4.4 (3.5-5.0) g/dL Beta HCG, Quant < 2 mIU/mL Independent Interpretation I performed an independent interpretation of an: CT Scan Interpretation: My interpretation is in agreement with the radiologist's impression of this imaging study. Report Number: [id number]: Total DLP = 329.00 mGy-cm EXAMINATION: CT MAXILLOFACIAL WITH IV CONTRAST HISTORY: concern for right sided facial abscess. TECHNIQUE: Serial 1.5 mm helically acquired images were obtained of the facial bones after the intravenous administration of 85 mL Omnipaque 350 per standard departmental protocol. Coronal and sagittal reformatted images were also obtained and evaluated. One or more of the following techniques was used for dose reduction: Automated exposure control, adjustment of the mA and/or kV according to patient size, use of iterative reconstruction technique. DLP: 329 mGy-cm COMPARISON: There are no prior studies for comparison. FINDINGS: The facial bones are intact. No fractures are identified. The globes are intact. There is a polyp versus mucous retention cyst in the right maxillary sinus. The remaining paranasal sinuses are clear. The mastoid air cells and middle ear cavities are normally pneumatized. The visualized portion of the brain is unremarkable. There is mild infiltration of the fat of the right cheek with associated skin thickening, consistent with cellulitis. No loculated fluid collection is seen to suggest abscess. CT/CT facial bones w IV con IMPRESSION: Findings consistent with right facial cellulitis. No evidence of an abscess. Electronically signed by: Sg David MD 07/12/2024 10:44 AM [facility] [place] By: Sg David MD Signed By: Electronically signed by Sg David MD 07/12/24 1044 Radiology Impression Discussion of test interpretation with radiology: I have reviewed the radiologist's reading. Critical Care Time Critical Care Time Critical Care Time: Yes Total Critical Care Time: 34 Attestation: I spent 34 minutes of Critical Care Time with this patient. This does not include time spent on separately reported billable procedures. Discharge Plan Discharge Clinical Impression: Cellulitis of face, Dog bite Patient Disposition: Admitted As Inpatient
--- OUTSIDE RECORDS SUMMARY | 2024-07-12 07:44 | XMS_ITS | Patient Health Record ---
Author Organization [facility] Address [address] [place] [address] Care Team Providers Care Clerk Travel Reservations Name Role Phone JED ESCOBAR Primary Care Provider Unavail able Elizabeth Madsen Unavailable [phone] Allergies Allergen (clinical drug ingredient) Drug/Non Drug Allergy documented on EMR Reaction Allergy Type Onset Date Status amoxicillin AMOXICILLIN Rash/Hives Drug Allergy Ac tive Reason For Referral No Information Medications Medication [...] Risk Notes Problem Excessive and frequent menstruation (067576716) Excessive and frequent menstruation with regular cycle (N92.0) Active confirmed Problem Sexually transmitted infectious disease (7166845) Encounter for screening for infections with a predominantly sexual mode of transmission (Z11.3) Active confirmed Problem Atypical glandular cells on cervical Papanicolaou smear (259359429) Abnormal glandular Papanicolaou smear of cervix (795.00) Active confirmed Diag Problem Gynecological examination normal (070823050892439) Routine gynecological examination (V72.31) Active confirmed Major Plan Of Treatment Pending Test Test Name Order Date Test, Urine 06/19/2018 Insurance Providers Payer Name Payer Address Payer Phone Subscriber Number Group Number Insured Name Patient Relationship to Insured Coverage Start Date Coverage End Date [employer] [address] [place] [address] [phone] [id number] ERICH HOUSER Self - patient is the [...] encounter [id number] Surgical History Surgery Date(Month/Year) Colposcopy [place]
--- OUTSIDE RECORDS SUMMARY | 2024-07-12 07:44 | XMS_ITS | Data Portability ---
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 Patient consented to video & audio visit Patient was located in the [facility]. Provider was located in the office. No other persons participated in the telemedicine visit except for the patient unless otherwise indicated here. {{}} Total time of visit was 18 minutes. [email or web address] Not available 08/17/2022 09:57:05 09/28/2022 09/28/2022 This service was provided using telemedicine. Patient consented to video & audio visit Patient was located in the [facility]. Provider was located in the office. No other persons participated in the telemedicine visit except for the patient unless otherwise indicated here. {{}} Total time of visit was 18 minutes. [email or web address] Not available 09/28/2022 10:45:26 12/28/2022 12/28/2022 This service was provided using telemedicine. Patient consented to video & audio visit Patient was located in the [facility]. Provider was located in the office. [...] Not available Lab lipid panel , serum 2023 024 [facility], [address], [address], [place], [address], 07/13/2023 11:22:38 CMP, serum or plasm a 2023 024 [email or web address] [facility], [address], [address], [place], [address], 02/08/2024 09:34:58 CBC w/ auto diff 2023 024 [email or web address] [facility], [address], [address], [place], [address], 02/08/2024 09:34:59 TSH, serum or plasm a 2023 024 [facility], [address], [address], [place], [address], 07/13/2023 11:22:22 lipid panel , serum 2022 023 [facility], [address], [address], [place], [address], 07/01/2022 13:28:45 CMP, serum or plasm a 2022 023 [email or web address] [facility], [address], [address], [place], [address], 01/27/2023 13:07:47 CBC w/ auto diff 2022 023 [email or web address] [facility], [address], [address], [place], [address], 01/27/2023 13:07:47 TSH, serum or plasm a 2022 023 [facility], [address], [address], [place], [address], 07/01/2022 13:28:[address] st refer ral - brandan rns for ADHD, inatt entio n, diff brandan ntrat ing, finis mariya tasks . has anxie ty and depre ssion / grief . 2023 024 [email or web address] [facility], [address] [facility], [place], [place], [address], 01/09/2024 09:58:35 Procedures None recor ded. Surgeries None recor ded. Imaging None recor ded. Medication Orders escit alopr am 20 mg table t 2022 023 [place] [facility], [address] [place], [place], [id number], 12/28/2022 10:41:51 bupro pion HCl XL 150 mg 24 hr table t, exten ded relea se 2022 023 [facility]83333, [address], [place], [id number], 09/28/2022 10:45:15 sumat ripta n 50 mg table t 2022 [facility]23 [facility]90294, [address], [place], [id number], 08/17/2022 09:52:11 bupro pion HCl XL 150 mg 24 hr table t, exten ded relea se 2022 023 [facility] #37901, [facility], [place], [phone], 08/17/2022 09:50:40 hydro xyzin e pamoa te 25 mg capsu le 2022 023 [facility] #[id number], [address], [place], [id number], 09/28/2022 10:36:36 Patient TargetsNo targets recorded. Patient Instructions Encounter Date Encounter Id Patient Instructions Last Modified By Organization Details Last Modified Time 07/01/2022 [id number] adjustment disorder: care instructions [email or web address] Not available 07/01/2022 13:29:43 grief (actual/anticipat ed): care instructions [email or web address] Not available 07/01/2022 13:29:43 call or return for worsening or concerns [email or web address] Not available 07/01/2022 13:29:18 08/17/2022 [id number] anxiety disorder : care instructions [email or web address] Not available 08/17/2022 09:53:01 depression treatment: care instructions [email or web address] Not available 08/17/2022 09:53:01 call or return for worsening or concerns [email or web address] Not available 08/17/2022 09:52:24 09/28/2022 [id number] anxiety disorder : care instructions jthabet Not available 09/28/2022 10:45:07 depression treatment: care instructions jthabet Not available 09/28/2022 10:45:07 12/28/2022 [id number] anxiety disorder : care instructions jthabet Not available 12/28/2022 10:42:35 depression treatment: care instructions [email or web address] Not available 12/28/2022 10:42:36 To call or retur n for worsening or concerns [email or web address] Not available 12/28/2022 10:42:18 07/13/2023 [id number] adjustment disorder: care instructions [email or web address] Not available [...] Address Organization Details Recorded Time Anxiety state 837984214 Active 2013 Not Available [facility] 3 08:14:25 Follow-u p encounte r Completed 201204/17/2018 [place] Juan [facility] 8 13:22:04 Adult health examinat ion Active 2013 Not Available [facility] 3 08:14:25 Administ ration of diphther ia and tetanus vaccine Completed 201104/17/2018 [place] Juan [facility] 8 13:21:58 Screenin g for malignan t neoplasm of cervix Completed 201304/17/2018 [place] Juan [facility] 8 13:22:10 Follow-u wilberto encounte r Completed 201301/06/2014 RECORDED 11/16/19 14 2:06PM BY STEPH BRYAN MA, ANNOTATI ON/ADDEN DUM [place] Juan [facility] 8 13:22:04 Tobacco user 170395934 Completed 201304/17/2018 [place] Juan [facility] 8 13:33:07 History of clinical finding in subject 189397592 Completed 201304/17/2018 [place] Juan [facility] 8 13:22:01 Overweig ht 027250251 Active 2013 Not Available [facility] 3 08:14:25 Administ ration of diphther ia and tetanus vaccine Completed 201301/06/2014 RECORDED 11/16/19 14 2:06PM BY STEPH BRYAN MA, ANNOTATI ON/ADDEN DUM Steph Linda-[place] ttos, [place] [facility] 13:21:58 Headache 98055293 Active Not Available [facility] 3 08:14:25 Ex-smoke r 4157951 Active 2017 Not Available [facility] 3 08:14:25 COVID-19 013422152 Active 2021May 2021 Not Available [facility] 3 08:14:25 Administ ration of viral vaccine Active 2021 Not Available [facility] 3 08:14:25 Generali zed anxiety disorder 57204394 Active 2021 Not Available [facility] 3 08:14:25 Recurren t major depressi ve episodes , moderate 586198585 Active 2021 Not Available [facility] 3 08:14:25 Adjustme nt disorder with mixed emotiona l features 41965781 Active 2021 Not Available [facility] 3 08:14:25 Fatigue 61154843 Active 2022 Not Available [facility] 3 08:14:25 Inattent ion 84451908 Active 2023 DAVIS Perkins [facility] [address], [place], [address] , [facility] 4 11:23:07 Problem Notes None recorded. Procedures Surgical History Date Name Laterality Status Provider Name and Address Organization Details Recorded Time 08/16/2020 Date of Last Pap Smear completed [facility] [address], [address], [facility] 07/13/2023 11:20:10 No surg proc w/in 30 days completed Steph casey MA [facility] 04/17/2018 13:35:22 Imaging Results None recorded. Procedure Notes None recorded. Medical Equipment None Reported. Allergies Allergen ID Allergen Name Allergen Category Reaction Reaction Severity Criticality Documentation Date Start Date Code Code System Note Provider Name and Address Organization Details Recorded Time 44636 amoxicill in medicatio n rash Not available Not available 06/03/2015 723 RxNorm Mary Alice Paredes MA [facility] 6 14:22:51 Medications Name Sig Start Date [...] Updated DateTime 3 153.67 cm 34.6 kg/m2 56857.3 3 g 94 /min 97 % 97 % 97.7 [degF] 131 mm[Hg] 87 mm[Hg] Cherise Dumas MA [facility] 3 13:13:38 Date Recorded Body height Provider Name an d Address Organization Details Last Updated DateTime 08/17/2022 153.67 cm [facility] 08/17/2022 09:36:37 Date Recorded Body height Provider Name an d Address Organization Details Last Updated DateTime 09/28/2022 153.67 cm [facility] Har[facility] 09/28/2022 10:39:24 Date Recorded Body height Provider Name an d Address Organization Details Last Updated DateTime 12/28/2022 153.67 cm Mell Martinez MA [facility] 12/28/2022 10:26:39 Date Recorded Body height Body mass index (BMI) Body weight Oxygen saturation Oxygen saturation in Arterial blood by Pulse oximetry Heart rate Body temperature Systolic blood pressure Diastolic blood pressure Provider Name and Address Organization Details Last Updated DateTime 4 153.67 cm 33.4 kg/m2 46229.7 7 g 98 % 98 % 89 /min 97.7 [degF] 113 mm[Hg] 74 mm[Hg] Mell Martinez MA [facility] 4 11:04:58 Social History Question Answer Notes LastModified by Organizat ion Details LastModified Time Tobacco Smoking Status Former Smoker [place] William [facility] 04/17/2018 13:35:09 Do You Have An Advance Directive? No HCP Declined [email or web address] Information not available 06/29/2021 What Is Your Level Of Alcohol Consumption? Occasional [email or web address] Information not available 07/13/2023 Is Blood Transfusion [...] COVID-19 While That Case Was Ill? No [email or web address] Information not available 06/29/2021 In The 14 Days Before Symptom Onset, Have You Had Close Contact With A Person Who Is Under Investigation For COVID-19 While That Person Was Ill? No [email or web address] Information not available 06/29/2021 Have You Been To An Area Known To Be High Risk For COVID-19? No [email or web address] Information not available 06/29/2021 Are You Currently Employed? Yes Information not available 06/03/2015 What Type Of Diet Are You Following? REGULAR Information not available 04/17/2018 Which Illicit Or Recreational Drugs Have You Used? Marijuana Information not available 07/01/2022 Do You Or Have You Ever Used E-cigarettes Or Vape? 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 1-5yearssince lastcigarette [email or web address] Information not available 06/29/2021 Live Alone Or [...] Of Your Most Recent Tobacco Screening? 07/13/2023 [email or web address] Information not available 07/13/2023 Do You Use Protection During Sex? No Information not available 04/17/2018 Seat Belts Used Routinely Yes [email or web address] Information not available 06/29/2021 Are You Sexually Active? Yes Information not available 04/17/2018 Smoke Alarm In Home No [email or web address] Information not available 06/29/2021 At What Age Did You Start Smoking Tobacco? 16 Quit At 18 Information not available 04/17/2018 Are You Passively Exposed To Smoke? No Information not available 04/17/2018 Do You Or Have You Ever Used Smokeless Tobacco? Never Used Smokeless Tobacco [email or web address] Information not available 04/14/2020 How Much Tobacco Do You Smoke? 1 PPW Social Smoker [email or web address] Information not available 04/14/2020 Do You Use Any Illicit Or Recreational Drugs? Yes Information not available 07/01/2022 Do You Use Sunscreen Routinely? Yes Information not available 04/17/2018 How Many Years Have You Smoked Tobacco? 2 Information not available 04/14/2020 Sex: Female Functional Status Question Answer Note LastModified by Organizat ion Details LastModified Time Are you able to walk? YESWOREST [email or web address] Information not available 06/29/2021 Are you able to care for yourself? Yes Information not available 06/03/2015 What is your exercise level? Occasional Information not available 04/17/2018 Mental Status None recorded. Family History Relationship Description Onset Age of this Age Resolved Age Notes LastModified by Organization Details LastModified Time Paternal Grandmother Diabetes mellitus [email or web address] Not available 2015 14:22:26 Father Excision of melanoma [email or web address] Not available 06/29 10:52:43 Mother Depressive disorder [email or web address] Not available 06/29 11:05:33 Mother Failure to [...] 05/15/20 18 cancelled patient objection Not Available [facility] 06/15/2019 02:22:16 Tdap 01/25/20 12 completed Not Available [facility] 12/06/2022 08:14:25 DTaP 08/22/18 89 completed Not Available [facility] 12/06/2022 08:14:26 DTaP 10/22/18 89 completed Not Available [facility] 12/06/2022 08:14:26 DTaP 12/22/18 89 completed Not Available [facility] 12/06/2022 08:14:26 DTaP 06/24/18 91 completed Not Available [facility] 12/06/2022 08:14:26 DTaP 02/09/19 94 completed Not Available [facility] 12/06/2022 08:14:26 Tdap 09/04/19 06 completed Not Available [facility] 12/06/2022 08:14:25 Hep B, adult 09/21/19 00 completed Not Available [facility] 12/06/2022 08:14:25 Hep B, adult 11/01/19 00 completed Not Available [facility] 12/06/2022 08:14:25 Hep B, adult 02/20/20 01 completed Not Available [facility] 12/06/2022 08:14:25 Hib (HbOC) 06/24/18 91 completed Not Available [facility] 12/06/2022 08:14:26 MMR 10/05/18 90 completed Not Available [facility] 12/06/2022 08:14:25 MMR 09/21/19 00 completed Not Available [facility] 12/06/2022 08:14:25 IPV 08/22/18 89 completed Not Available [facility] 12/06/2022 08:14:25 IPV 10/22/18 89 completed Not Available [facility] 12/06/2022 08:14:25 IPV 12/22/18 89 completed Not Available [facility] 12/06/2022 08:14:25 IPV 06/24/18 91 completed Not Available [facility] 12/06/2022 08:14:25 IPV 02/09/19 94 completed Not Available [facility] 12/06/2022 08:14:25 Td (adult), 2 Lf tetanus toxoid, preservative free, adsorbed 09/21/19 00 completed Not Available [facility] 12/06/2022 08:14:25 varicella 01/10/19 98 completed Not Available [facility] 12/06/2022 08:14:25 Past Encounters Encounter ID Performer Location Encounter Start Date Encounter Closed Date Diagnosis/Indication Diagnosis SNOMED-CT Code Diagnosis ICD10 Code Diagnosis Note [id number] autoEComm erce [address] [facility] [place] [address] 01/25/2012 00:00:00 [id number] autoEComm erce [address] [facility] [place] [address] 11/15/2013 00:00:00 [id number] Benjamin Parkinson MD Main Office [address] [facility] [address] [place] [address] 06/03/2015 13:54:11 06/03/2015 14:56:20 Headache 48491643 R51 2nd episode of headache with light [...] to pinpoint headache triggers and avoid these. [id number] Mega Talley MD Main Office [address] [place] [address] 04/17/2018 13:10:22 04/17/2018 14:06:04 Adult health examination 472819496 Z00.00 HM UTD, she declines flu vaccine and lbs today. Immunization refused 275 860466 Z28.21 Headache 58908713 R51 Resolved after getting IUD. Anxiety 73139544 F41.9 Her TONG score is a 3, [...] If any problems please call or return. [id number] DAVIS Perkins Main Office [address] [place] [address] 05/15/2018 12:46:08 05/15/2018 13:30:40 Needs influenza immunization 937464828 Z23 Anxiety state 036870525 F41.1 doing fairly well on 10mg escitalopr am, she wishes to stay on 10mg for now. will be due for refill next month and will call to let me know if she wants to increase the dose or stay at 10mg. also encouraged her to try taking med in the morning as she is having some trouble sleeping. [id number] Jed Burks [facility] Main Office [address] [place] [address] 01/28/2020 14:09:10 01/28/2020 14:47:41 Anxiety state 901453886 F41.1 will refill med, 10mg is working well for her. F/U in 2 months for PE. Major depr essive disorder 576908259 F32.0 [id number] DAVIS Perkins Main Office [address] [address] [place] [address] 04/14/2020 14:24:56 04/14/2020 15:02:19 Adult health examination 458918298 Z00.00 HM UTD, she declines flu vaccine today. Anxiety state 091909775 F41.1 doing ok, lexapro 10mg Abnormal weight gain 161 171162 R63.5 concerned about weight gain. she is eating poorly, not exercising , recommend quick HIIT workouts or short you tube videos. more walking / movement during free times. dietary changes Screening for cardiovascular system disease 368748456 Z13.6 [id number] DAVIS Perkins Main Office [address] [address] [place] [address] 06/29/2021 10:52:34 06/29/2021 11:54:02 Adult health examination 988447710 Z00.00 HM UTD, she declines flu vaccine today. due for pap, she will schedule. Anxiety state 432057301 F41.1 increase lexapro to 20mg he has been taking 20mg for a few months now. Screening for cardiovascular system disease 044809753 Z13.6 Screening for malignant neoplasm of cervix 958062860 Z12.4 Administra tion of viral vaccine 95793126 Z23 Headache 73729174 R51.9 sumatripta n as needed or migraines associated with menses every other period. Call/ return if not helpful. [id number] [facility] [address] [address] [place] [address] 02/16/2022 08:50:48 02/16/2022 15:56:25 Generalized anxiety disorder 91938753 F41.1 TONG score 11/16 Recurrent major depressive episodes, moderate 565602696 F33.1 PHQ-9 score 05/24. Her Mother is going on hospice and she is her HCP. will add lorazpeam to use as needed- no driving or alcohol with med, do not overuse med. [id number] Jed Burks [facility] [address] [place] [address] 04/27/2022 08:30:12 04/27/2022 13:45:53 Generalized anxiety disorder 49339281 F41.1 TONG score 7. Anxiety is currently at very high levels. Her Mom is in her final stages of life, on hospice in a SNF. Patient is struggling with both anxiety and depression . Recurrent major depressive episodes, moderate 061894381 F33.1 PHQ-9 score 01/22. Her Mother is on hospice and she is her HCP. will add lorazepam to use as needed- no driving or alcohol with med, do not overuse med. Adjustment disorder with mixed emotional features 73515980 F43.23 grieving for her Mother. [id number] DAVIS Perkins Main Office [address] [address] 07/01/2022 12:56:24 07/01/2022 13:51:24 Adult health examination 918371427 Z00.00 UTD Anxiety state 424219066 F41.1 lexapro is helpful but still struggling with panic attacks, will try hydroxyzin e as needed. Screening for cardiovascular system disease 697927810 Z13.6 Headache 07617538 R51.9 sumatripta n as needed for migraines associated with menses every other period. Call/ return if not helpful. Fatigue 59783196 R53.83 Adjustment disorder with mixed emotional features 51450366 F43.23 grieving for her Mother. [id number] Jed Burks [facility] [address] [address] 08/17/2022 08:43:12 08/17/2022 11:04:33 Recurrent major depressive episodes, moderate 446144271 F33.1 Do not miss doses or stop medication s abruptly. Start wellbutrin in am, it can be activating and cause vivid dreams. Generalize d anxiety disorder 83403798 F41.1 continue lexapro as directed, hydroxyzin e as needed. Headache 07954345 R51.9 sumatripta n as needed for migraines associated with menses every other period. Call/ return if not helpful. [id number] Jed Burks, [facility] [address] [address] [place] [address] 09/28/2022 09:59:14 09/28/2022 10:49:55 Recurrent major depressive episodes, moderate 094128740 F33.1 Do not miss doses or stop medication s abruptly. continue wellbutrin in am, it can be activating and cause vivid dreams. Generalize d anxiety disorder 92140885 F41.1 continue lexapro as directed. Headache 13229090 R51.9 sumatripta n as needed for migraines associated with menses every other period, sumatripot an seemed helpful around her period. [id number] Jed Burks [facility] [address] [address] [facility] [place] [address] 12/28/2022 10:01:54 12/28/2022 11:15:17 Recurrent major depressive episodes, moderate 575260998 F33.1 Do not miss doses or stop medication s abruptly. continue wellbutrin in am, it can be activating and cause vivid dreams. Generalize d anxiety disorder 10318600 F41.1 continue lexapro as directed. [id number] Jed Burks [facility] Main Office [address] [address] 07/13/2023 10:57:35 07/13/2023 11:31:36 Adult health examination 588579487 Z00.00 UTD, due for pap this year Anxiety state 973331471 F41.1 continue lexapro and bupropion Screening for cardiovascular system disease 323960298 Z13.6 Headache 95038872 R51.9 sumatripta n as needed for migraines associated with menses every other period. Call/ return if not helpful. Fatigue 27957951 R53.83 Adjustment disorder with mixed emotional features 50281219 F43.23 grieving for her Mother and now her dog Inattention 55148593 R41 .840 bupropion has not helped with her feelings of inattentio n, she would like to have neuropsych eval. Recurrent major depressive episodes, moderate 934368732 F33.1 Do not miss doses or stop [...] Guarantor Name 07/01/2022 1 [employer] [id number] Ros C Collins [id number] 1 Ros C Collins 08/17/2022 1 [employer] [id number] Ros C Collins [id number] 1 Ros C Collins 09/28/2022 1 [employer] [id number] Ros C Collins [id number] 1 Ros C Collins 12/28/2022 1 [employer] [id number] Ros C Collins [id number] 1 Ros C Collins 07/13/2023 1 [employer] [id number] Ros C Collins [id number] 1 Ros C Collins Notes Date Note Type Note Provider Name and Address Organization Details Recorded Time 07/01/2022 text/html Generic HPI TemplateReported bypatient.Notes:Presen ts for PE.Mom was on hospice and in april 29, 2022. Has been struggling, comes and goes, some days better than others. Has a good support system. Her Dad is also in Shelter, the day after her Mom dies he was arrested for stealing money.More depression than anxiety, takign 40mg lexapro which is helping but has been having panic attacks, no specific triggers, wakes up with chest pressure. Takes lorazepam as needed but not that helpful.- Has sx of poor concentration, sometimes diff finishing tasks, feels all over the place, more heightened Jed Burks, [facility] [address] [address], [place], [address], [facility] 07/01/2022 13:54:19 08/17/2022 text/html Generic HPI TemplateReported bypatient.Notes:Video visit: Patient's Mom recently and she was her health care proxy, was very difficult for her. Her Dad [place] [facility] [place] [facility]- arrested in april.Having a [...] Wants to discuss adding wellbutrin. Jed Burks [facility] [address] [place] [address] [address], [place], [address], [facility] 08/17/2022 09:57:38 09/28/2022 text/html Generic HPI TemplateReported bypatient.Notes:Video visit: Patient's Mom recently and she was her health care proxy, was very difficult for her. Her Dad is [place] [facility] for [facility] years- arrested in april.Having a [...] day, focusing a bit better. DAVIS Perkins [facility] [address], [place], [address], [facility] 09/28/2022 10:48:14 12/28/2022 text/html Generic HPI TemplateReported bypatient.Notes:Video visit: Patient's Mom recently and she was her health care proxy, was very difficult for her. Her Dad is [place] [facility] for 2 years- arrested in april.Having a [...] not quality sleep. Jed Burks, DAVIS [address], [address], [facility] 12/28/2022 10:50:00 07/13/2023 text/html Generic HPI TemplateReported bypatient.Notes:Edmund tse for PE.Mom was on hospice and in april 29, 2022. Has been struggling, comes and goes, some days better than others. Has a good support system. Her Dad is also in Shelter, the day after her Mom he was arrested for stealing money.- Has sx of poor concentration, sometimes diff finishing tasks, feels all over the place, more heightened - Her dog before , struggling with good and bad days, back on 20mg lexapro. Jed Burks, DAVIS [address] [facility] [address], [place], [id number], [facility] [place] 07/13/2023 11:57:41 OBGyn Episode No OBEpisode recorded.
[2024-07-12 08:31] LABS: MANUAL DIFF FLAG NO
[2024-07-12 08:32] LABS: Basophils Absolute Auto 0.1 X10*3/uL (0.0-0.2); Basophils Percent Auto 0.7 % (0-2); Eosinophils Percent Auto 0.4 % (0-4); Hematocrit 38.5 % (37.0-47.0); Hemoglobin 13.3 g/dl (12.0-16.0); Imm Gran Abs Auto 0.04 X10*3/uL (0.00-0.03); Imm Gran Pct Auto 0.6 % (0.0-0.4); Lymphocytes Absolute Auto 1.3 X10*3/uL (1.2-4.9); Lymphocytes Percent Auto 19.2 % (20-40); Mean Corpuscular HGB Conc 34.5 g/dl (31.0-35.0); Mean Corpuscular Volume 83.9 fL (80.0-98.0); Mean Platelet Volume 10.5 fL (9.4-12.3); Monocytes Absolute Auto 0.5 X10*3/uL (0.1-1.2); Monocytes Percent Auto 6.8 % (2-11); Neutrophils Percent Auto 72.3 % (45-73); Platelet Count 328 X10*3/uL (160-400); Red Blood Count 4.59 X10*6/uL (4.20-5.50); Red Cell Distribution Width 13.8 % (11.0-16.0); White Blood Count 6.9 X10*3/uL (4.8-10.8)
[2024-07-12] MEDS: diphenhydrAMINE HCL 50 MG/ML VIAL 25 MG IVPUSH ×3 (08:37→20:20)
[2024-07-12] MEDS: LORazepam 2 MG/ML VIAL 1 MG IVPUSH (08:38)
[2024-07-12] MEDS: Piperacillin Sodium/Tazobactam 3.375 GM in 0.9 % Sodium Chloride 50 ML IV ×3 (08:38→20:20)
[2024-07-12 08:46] LABS: Alanine Aminotransferase 14 U/L (0-31); Albumin Level 4.4 g/dL (3.5-5.0); Alkaline Phosphatase 82 U/L (39-117); Anion Gap 17 (12-20); Aspartate Amino Transferase 20 U/L (5-31); Bilirubin Total 0.5 mg/dL (0.0-1.0); Blood Urea Nitrogen 10 mg/dL (9-16); C Reactive Protein 0.61 mg/dL (< or = 0.50); Calcium 9.3 mg/dL (8.4-10.2); Carbon Dioxide 16 mmol/L (22-29); Chloride 109 mmol/L (96-108); Creatinine Clr Calc Pharmacy 96.4; Estimated Glomerular Filt Rate > 60; Glucose Random 83 mg/dL (60-115); Potassium 3.7 mmol/L (3.3-5.1); Sodium 138 mmol/L (135-145); Total Protein 7.7 g/dL (6.5-8.0)
[2024-07-12 09:11] LABS: Erythrocyte Sedimentation Rate 10 MM/HR (0-20)
[2024-07-12 09:37] LABS: HCG Quantitative < 2 mIU/mL
[2024-07-12] MEDS: iohexoL 350 MG/ML 100 ML INFUS..BTL IV (10:20)
[2024-07-12 10:22] VITALS: BP 114/75; PULSE 68; RESP 15; TEMP 37.2; O2SAT 98
--- NOTE | 2024-07-12 11:23 | P.HPHOSP_ITS ---
History of Present Illness Date of Service: 07/12/24 Attending physician on admission: Tish Michelle Chief Complaint: Dog bite Pt is a 34-year-old female with a PMH significant for?anxiety and depression who presents to the ED with?for evaluation of worsening right face wound. Injury was sustained 2 days prior on 07/10 when she went to kiss her sleeping dog on the head and he woke up and snapped her, breaking the skin under her right eye. Pt initially presented to the ED for evaluation where she did not require sutures. Pt was sent home on Flagyl and Bactrim due to a childhood allergy (rash) to amoxicillin. Despite taking antibiotics as prescribed, pt reports wound worsened, feeling warm, having pus-like drainage, and had subjective fever, chills, and headache. Denies any significant pain. No acute vision changes. Denies pain with eye movement. No nausea, vomiting, abdominal pain. Pt reports that both she and her dog are up to date on all vaccinations. Of note, pt was given Benadryl 25 mg prior to administration of Zosyn earlier this morning in the ED. pt tolerated this regimen well without any adverse reaction including rash. Pt denies pruritus, difficulty breathing, chest or throat tightness. In the ED pt was tachycardic up to 115, vitals otherwise stable and WNL. Labs were grossly unremarkable and around baseline for pt. No leukocytosis. Stable H&H. No significant electrolyte abnormalities. Renal function baseline. Hepatic function WNL. CRP mildly elevated at 0.61. CT of face with findings consistent with right facial cellulitis without evidence of abscess. Pt was treated with lorazepam, Benadryl, and Zosyn. Pt will be admitted to the hospital for treatment and further evaluation of right facial cellulitis secondary to dog bite that failed outpatient therapy. Review of Systems 2 Review of Systems: Negative except for that which is stated in the [facility] Medical History Recurrent major depressive episodes, moderate (02/16/22) Generalized anxiety disorder (02/16/22) Anxiety state (11/15/13) Adjustment disorder with mixed emotional features (04/27/22) Social History Unable to assess alcohol history related to: Unable to respond Smoked in Last 30 Days: No Use of substances other than those prescribed or required for medical reasons: No Advance Directives: No Advance Directives Information Provided: Yes Do you have a plan to hurt others: No Plan Meds Allergies Allergy/AdvReac Type Severity Reaction Status Date / Time amoxicillin Allergy Rash Verified 07/12/24 07:01 Home Medications ?Medication ?Instructions ?Recorded ?Confirmed ?Last Taken ?Type bupropion HCl 150 mg 24 hr tablet, 150 mg PO DAILY 07/12/24 07/12/24 07/11/24 History extended release escitalopram oxalate 20 mg tablet 40 mg PO DAILY 07/12/24 07/12/24 07/11/24 History Physical Exam 2 Vital Signs and Narrative: Vital Signs: Last Vital Signs Temp 98.9 F 07/12/24 10:22 Pulse 68 07/12/24 10:22 Resp 15 07/12/24 10:22 BP 114/75 07/12/24 10:22 Pulse Ox 98 07/12/24 10:22 O2 Del Method Room Air 07/12/24 10:22 BMI result Body Mass Index 33.2 General: AOx3, no acute distress Face: Small laceration with pus-like drainage under right eye with surrounding erythema and warmth. Mild tenderness. As pictured below EOM intact. Resp: CTA bilaterally CVS: S1, S2, RRR GI: +BS, NT, no distention Skin: Warm, dry Neuro: Cranial nerves II-XII grossly intact bilaterally. Motor grossly intact bilaterally Extremities: No edema Psych: Appropriate affect Results Labs 07/12/24 08:25 07/12/24 08:25 Labs: Laboratory Results - last 24 hr 07/12/24 08:25 MCV 83.9 MCH 29.0 MCHC 34.5 RDW 13.8 Plt Count 328 MPV 10.5 Immature Gran % (Auto) 0.6 H Neut % (Auto) 72.3 Lymph % (Auto) 19.2 L [place] % (Auto) 6.8 Eos % (Auto) 0.4 Baso % (Auto) 0.7 Lymph # (Auto) 1.3 [place] # (Auto) 0.5 Eos # (Auto) 0.0 Baso # (Auto) 0.1 Abs Immat Gran (auto) 0.04 H Absolute Neuts (auto) 5.0 Absolute Nucleated RBC 0.000 Nucleated RBC % (auto) 0.0 ESR 10 Anion Gap 17 Estim Creat Clear Calc 96.4 Estimated GFR > 60 Random Glucose 83 Lactic Acid 1.0 Calcium 9.3 Total Bilirubin 0.5 AST 20 ALT 14 Alkaline Phosphatase 82 C-Reactive Protein 0.61 H Total Protein 7.7 Albumin 4.4 Beta HCG, Quant < 2 Imaging Radiologist's Impressions: Impressions Face CT 07/12/24 10:01 IMPRESSION: Findings consistent with right facial cellulitis. No evidence of an abscess. Electronically signed by: Sg David MD 07/12/2024 10:44 AM [facility] [place] (1) Cellulitis of face: Status: Acute (2) Dog bite: Status: Acute Plan Pt is a 34-year-old female with a PMH significant for?anxiety and depression who presents to the ED with?for evaluation of worsening right face wound. Injury was sustained 2 days prior on 07/10 when she went to kiss her sleeping dog on the head and he woke up and snapped her, breaking the skin under her right eye. Pt will be admitted to the hospital for treatment and further evaluation of right facial cellulitis secondary to dog bite that failed outpatient therapy. Right facial cellulitis Secondary to dog bite on 07/10 Has been worsening with increased erythema and pus like drainage despite being on Bactrim and Flagyl No sepsis: Tachycardia secondary to anxiety; no tachypnea, leukocytosis, or fever Will treat with Zosyn, started 07/12/2024 Administer Benadryl 25 mg IV prior to Zosyn dosing due to childhood rash to amoxicillin Follow wound cultures Anxiety and depression Continue bupropion and escitalopram Full Code Attending:?Dr. Hanks DVT Prophylaxis: Lovenox Pt will require a hospitalization of at least two nights for treatment of?right facial cellulitis secondary to dog bite that failed outpatient therapy and will require IV antibiotics and close monitoring due to previous adverse reaction to amoxicillin. Quality Stroke Does the patient have a stroke diagnosis?: No VTE Prior VTE?: No VTE Risk Level:: Medical - moderate - high VTE Device Contraindication: Treatment Not Indicated VTE Drug Contraindication: N/A - Med Ordered
--- NOTE | 2024-07-12 11:43 | PHA.MEDREC ---
Addendum entered by Jony Avalos RPh 07/12/24 12:20: Med rec was reviewed by [facility]. Original Note: Pharmacy Consult ? Medication Reconciliation Pharmacy has completed the medication reconciliation Spoke to patient to confirm med list. Patient states she was here on 07/10/24 and prescribed Bacitracin 500 mg oint, Metronidazole 500 mg and Bactrim DS. Patient is still taking.
[2024-07-12] MEDS: Escitalopram Oxalate 20 MG TABLET 40 MG PO (13:44)
[2024-07-12] MEDS: buPROPion HCl XL 150 MG TAB.ER.24H PO (13:44)
[2024-07-12] MEDS: Enoxaparin Sodium 40 MG/0.4 ML SYRINGE SUBCUT (13:44)
[2024-07-12 15:25] VITALS: BP 123/88; PULSE 109; RESP 16; TEMP 36.8; O2SAT 98
[2024-07-12] MEDS: 0.9 % Sodium Chloride Flush 3 ML SYRINGE IVFLUSH (16:27)
[2024-07-12 21:32] VITALS: BP 122/78; PULSE 90; RESP 20; TEMP 36.8; O2SAT 98
[2024-07-13] MEDS: Piperacillin Sodium/Tazobactam 3.375 GM in 0.9 % Sodium Chloride 50 ML IV ×4 (03:26→21:00)
[2024-07-13] MEDS: 0.9 % Sodium Chloride Flush 3 ML SYRINGE IVFLUSH ×3 (03:26→21:01)
[2024-07-13] MEDS: diphenhydrAMINE HCL 50 MG/ML VIAL 25 MG IVPUSH ×4 (03:27→21:00)
[2024-07-13 06:46] VITALS: BP 124/56; PULSE 81; TEMP 36.8; O2SAT 97
--- NOTE | 2024-07-13 08:34 | MHC.EDTECH ---
Patient ate 75% of breakfast. Call valencia placed within reach.
[2024-07-13] MEDS: buPROPion HCl XL 150 MG TAB.ER.24H PO (10:51)
[2024-07-13] MEDS: Escitalopram Oxalate 20 MG TABLET 40 MG PO (10:52)
--- NOTE | 2024-07-13 11:08 | MHC.CM.PN ---
CM MET WITH PT AT BEDSIDE IN ED OVERFLOW. PT LIVES WITH S/O AND IS FUNCTIONALLY INDEP. PT IS EMPLOYED F/T, NO SERVICES OR DME. PT DECLINES COMPLETING A HCP ATTHIS TIME DESPITE EDUCATION. PCP JED BURKS DP: HOME, NO SERVICES ANTICIPATED. PT HAS OWN RIDE HOME. CM WILL CONTINUE TO FOLLOW FOR ANY CHANGE TO DC PLAN/NEEDS.
--- NOTE | 2024-07-13 12:23 | P.PNIM_ITS ---
Subjective Subjective Date of Service: 07/13/24 Interval History: minimal redness around dog bit, no fluctuance no fever Review of Systems Review of Systems: Yes all other systems are reviewed and are negative Physical Exam 2 Vital Signs: Vital Signs: Last Vital Signs Temp 98.3 F 07/13/24 06:46 Pulse 81 07/13/24 06:46 Resp 20 07/12/24 21:32 BP 124/56 L 07/13/24 06:46 Pulse Ox 97 07/13/24 06:46 O2 Del Method Room Air 07/13/24 06:46 BMI result Body Mass Index 33.2 Gen: in no acute distress HEENT: sclera anicteric, moist mucus membranes Neck: supple Lungs: clear to auscultation bilaterally Heart: regular rate and rhythm, no murmurs Abd: soft, non-tender, non-distended Ext: no edema Skin: warm/well-perfused, bite deyanira to R cheek with minimal erythema and no purulence or fluctuance Neuro: alert and oriented x3, no focal findings Psych: appropriate affect Objective Data Active Medications Acetaminophen (Acetaminophen 325 Mg Tablet) 650 mg PO Q6H PRN PRN Reason: Pain, Mild 1-3,fever,headache Bupropion HCl (Bupropion Hcl Xl 150 Mg Tab.Er.24h) 150 mg PO DAILY [facility] Last Admin: 07/13/24 10:51 Dose: 150 mg Documented By: KATHERINE Calcium Carbonate (Calcium Carbonate 750 Mg Tab.Chew) 750 mg PO Q4H PRN PRN Reason: Heartburn Diphenhydramine HCl (Diphenhydramine Hcl 50 Mg/Ml Vial) 25 mg IVPUSH Q6H [facility] Last Admin: 07/13/24 10:47 Dose: 25 mg Documented By: KATHERINE Enoxaparin Sodium (Enoxaparin Sodium 40 Mg/0.4 Ml Syringe) 40 mg SUBCUT Q24H [facility] Last Admin: 07/12/24 13:44 Dose: 40 mg Documented By: ANN Escitalopram Oxalate (Escitalopram Oxalate 20 Mg Tablet) 40 mg PO DAILY [facility] Last Admin: 07/13/24 10:52 Dose: 40 mg Documented By: KATHERINE Piperacillin Sod/Tazobactam (Sod 3.375 gm/ Sodium Chloride) 50 mls @ 100 mls/hr IV Q6H [facility] Last Admin: 07/13/24 10:49 Dose: 100 mls/hr Documented By: KATHERINE Magnesium Hydroxide (Milk Of Magnesia 30 Ml Oral.Susp) 30 ml PO DAILY PRN PRN Reason: Constipation Sodium Chloride (0.9 % Sodium Chloride Flush 3 Ml Syringe) 3 ml IVFLUSH QSHIFT [facility] Last Admin: 07/13/24 10:50 Dose: 3 ml Documented By: KATHERINE Labs 07/12/24 08:25 07/12/24 08:25 Microbiology Microbiology Results: Microbiology 07/12/24 08:25 Blood Culture - Preliminary Blood - Venous No growth after 24 hours. 07/12/24 08:07 Blood Culture - Final Blood - Venous 07/12/24 10:11 Gram Stain - Final Face Routine Culture - Preliminary No growth to date. Assessment and Plan (1) Cellulitis of face: Status: Acute Plan d2 for 34yo F with anxiety/depression presenting with worsening R face wound after bit by her dog 07/10/24, failed outpt therapy with TMP-SMX and metronidazole; admitted for R facial cellulitis R facial cellulitis due to dog bite - continue piperacillin-tazobactam 07/12- and giving diphenhydramine prior to each dose given hx rash to amoxicillin - follow wound and blood cultures; if negative, d/c home tomorrow on amoxicillin-clavulanate with diphenhydramine [give 1st dose in hospital prior to d/c] anxiety/depression - bupropion, escitalopram VTE prophylaxis - enoxaparin dispo - eventual home In my clinical judgment, the patient requires continued inpatient hospitalization for the following reasons: IV ABX Total time managing care of this patient today: 40 minutes. Quality Stroke Does the patient have a stroke diagnosis?: No VTE Prior VTE?: No VTE Risk Level:: Medical - moderate - high VTE Device Contraindication: Treatment Not Indicated VTE Drug Contraindication: N/A - Med Ordered
[2024-07-13 14:00] VITALS: BP 122/73; PULSE 90; RESP 16; TEMP 36.2; O2SAT 97
[2024-07-13] MEDS: Enoxaparin Sodium 40 MG/0.4 ML SYRINGE SUBCUT (14:22)
[2024-07-13 15:20] VITALS: BP 111/66; PULSE 88; RESP 20; TEMP 36.1; O2SAT 97
[2024-07-13 19:42] VITALS: BP 123/75; PULSE 85; RESP 20; TEMP 36.3; O2SAT 97
[2024-07-13] MEDS: Acetaminophen 325 MG TABLET 650 MG PO (21:09)
[2024-07-14] MEDS: diphenhydrAMINE HCL 50 MG/ML VIAL 25 MG IVPUSH ×4 (02:29→20:16)
[2024-07-14] MEDS: Piperacillin Sodium/Tazobactam 3.375 GM in 0.9 % Sodium Chloride 50 ML IV ×4 (02:29→20:16)
[2024-07-14 03:05] VITALS: BP 114/61; PULSE 76; RESP 16; TEMP 36; O2SAT 95
[2024-07-14 07:57] VITALS: BP 122/63; PULSE 85; RESP 16; TEMP 36.3; O2SAT 96
[2024-07-14] MEDS: 0.9 % Sodium Chloride Flush 3 ML SYRINGE IVFLUSH ×3 (08:12→20:50)
[2024-07-14] MEDS: Escitalopram Oxalate 20 MG TABLET 40 MG PO (08:12)
[2024-07-14] MEDS: buPROPion HCl XL 150 MG TAB.ER.24H PO (08:12)
[2024-07-14] MEDS: Enoxaparin Sodium 40 MG/0.4 ML SYRINGE SUBCUT (12:11)
--- NOTE | 2024-07-14 13:51 | PM.CNGS ---
History of Present Illness Consult details Consult date: 07/14/24 Narrative: Patient was a 34-year-old female who sustained a dog bite by her own dog to her right upper cheek on 07/10. Patient was admitted for cellulitis and wound care. Apparently dog is up-to-date on his vaccinations. Patient was states she started with the dog when he was sleeping resulting in the bite. No other injuries. Chart was reviewed and patient evaluated PMFSH Past Medical History Medical History Recurrent major depressive episodes, moderate (02/16/22) Generalized anxiety disorder (02/16/22) Anxiety state (11/15/13) Adjustment disorder with mixed emotional features (04/27/22) Social History Social History Household Members: Significant Other Housing: Homeless Do you presently have visiting nurse or other home services: No Unable to assess alcohol history related to: Unable to respond Patient Tobacco Use Status: Never used Tobacco Substance Use Type: Marijuana service: No Meds Allergies Allergy/AdvReac Type Severity Reaction Status Date / Time amoxicillin Allergy Rash Verified 07/12/24 07:01 Active Medications: Current Medications Acetaminophen (Acetaminophen 325 Mg Tablet) 650 mg PO Q6H PRN PRN Reason: Pain, Mild 1-3,fever,headache Last Admin: 07/13/24 21:09 Dose: 650 mg Bupropion HCl (Bupropion Hcl Xl 150 Mg Tab.Er.24h) 150 mg PO DAILY [facility] Last Admin: 07/14/24 08:12 Dose: 150 mg Calcium Carbonate (Calcium Carbonate 750 Mg Tab.Chew) 750 mg PO Q4H PRN PRN Reason: Heartburn Diphenhydramine HCl (Diphenhydramine Hcl 50 Mg/Ml Vial) 25 mg IVPUSH Q6H [facility] Last Admin: 07/14/24 08:12 Dose: 25 mg Enoxaparin Sodium (Enoxaparin Sodium 40 Mg/0.4 Ml Syringe) 40 mg SUBCUT Q24H [facility] Last Admin: 07/14/24 12:11 Dose: 40 mg Escitalopram Oxalate (Escitalopram Oxalate 20 Mg Tablet) 40 mg PO DAILY [facility] Last Admin: 07/14/24 08:12 Dose: 40 mg Piperacillin Sod/Tazobactam (Sod 3.375 gm/ Sodium Chloride) 50 mls @ 100 mls/hr IV Q6H [facility] Last Infusion: 07/14/24 08:55 Dose: Infused Magnesium Hydroxide (Milk Of Magnesia 30 Ml Oral.Susp) 30 ml PO DAILY PRN PRN Reason: Constipation Sodium Chloride (0.9 % Sodium Chloride Flush 3 Ml Syringe) 3 ml IVFLUSH QSHIFT [facility] Last Admin: 07/14/24 08:12 Dose: 3 ml Home Medications ?Medication ?Instructions ?Recorded ?Confirmed ?Last Taken ?Type bupropion HCl 150 mg 24 hr tablet, 150 mg PO DAILY 07/12/24 07/12/24 07/11/24 History extended release escitalopram oxalate 20 mg tablet 40 mg PO DAILY 07/12/24 07/12/24 07/11/24 History Physical Exam Vital Signs: Vital Signs: Last Vital Signs Temp 97.4 F 07/14/24 07:57 Pulse 85 07/14/24 07:57 Resp 16 07/14/24 07:57 BP 122/63 07/14/24 07:57 Pulse Ox 96 07/14/24 07:57 O2 Del Method Room Air 07/14/24 07:57 BMI result Body Mass Index 33.2 HEENT: Other: Patient was a right upper cheek roughly 1.5 cm bite marked eschar was removed and some superficial purulence underneath. With pressure, no obvious abscess appreciated. Minimal cellulitis at this time. Mild surrounding edema Results Labs 07/12/24 08:25 07/12/24 08:25 Labs: All other labs normal. Assessment and Plan (1) Cellulitis of face: Status: Acute (2) Dog bite: Status: Acute Plan At present, no acute surgical intervention required. Continue IV antibiotics and local wound care. We will otherwise follow-up p.r.n.. Procedures Date of Service Date of Service: 07/14/24
[2024-07-14 15:21] VITALS: BP 126/75; PULSE 86; RESP 20; TEMP 36.6; O2SAT 97
--- NOTE | 2024-07-14 15:41 | HO.PM.IMPN ---
Subjective Subjective Date of Service: 07/14/24 Interval History: Feeling better no fevers no chills, noticed swelling right cheek, tolerating diet no other acute issues overnight Review of Systems All other system reviewed and are negative Physical Exam Vital Signs: Vital Signs: Last Vital Signs Temp 97.8 F 07/14/24 15:21 Pulse 86 07/14/24 15:21 Resp 20 07/14/24 15:21 BP 126/75 07/14/24 15:21 Pulse Ox 97 07/14/24 15:21 O2 Del Method Room Air 07/14/24 15:21 BMI result Body Mass Index 33.2 Const: Other: Gen: in no acute distress HEENT: sclera anicteric, moist mucus membranes Neck: supple Lungs: clear to auscultation bilaterally Heart: regular rate and rhythm, no murmurs Abd: soft, non-tender, non-distended Ext: no edema Skin: warm/well-perfused, bite deyanira to R cheek with minimal erythema and localized swelling. Neuro: alert and oriented x3, no focal findings Psych: appropriate affect Objective Data Active Medications Acetaminophen (Acetaminophen 325 Mg Tablet) 650 mg PO Q6H PRN PRN Reason: Pain, Mild 1-3,fever,headache Last Admin: 07/13/24 21:09 Dose: 650 mg Documented By: KISHA Bupropion HCl (Bupropion Hcl Xl 150 Mg Tab.Er.24h) 150 mg PO DAILY [facility] Last Admin: 07/14/24 08:12 Dose: 150 mg Documented By: MIRNA Calcium Carbonate (Calcium Carbonate 750 Mg Tab.Chew) 750 mg PO Q4H PRN PRN Reason: Heartburn Diphenhydramine HCl (Diphenhydramine Hcl 50 Mg/Ml Vial) 25 mg IVPUSH Q6H [facility] Last Admin: 07/14/24 14:46 Dose: 25 mg Documented By: MIRNA Enoxaparin Sodium (Enoxaparin Sodium 40 Mg/0.4 Ml Syringe) 40 mg SUBCUT Q24H [facility] Last Admin: 07/14/24 12:11 Dose: 40 mg Documented By: MIRNA Escitalopram Oxalate (Escitalopram Oxalate 20 Mg Tablet) 40 mg PO DAILY [facility] Last Admin: 07/14/24 08:12 Dose: 40 mg Documented By: MIRNA Piperacillin Sod/Tazobactam (Sod 3.375 gm/ Sodium Chloride) 50 mls @ 100 mls/hr IV Q6H [facility] Last Infusion: 07/14/24 15:22 Dose: Infused Documented By: MIRNA Magnesium Hydroxide (Milk Of Magnesia 30 Ml Oral.Susp) 30 ml PO DAILY PRN PRN Reason: Constipation Sodium Chloride (0.9 % Sodium Chloride Flush 3 Ml Syringe) 3 ml IVFLUSH QSHIFT [facility] Last Admin: 07/14/24 15:20 Dose: 3 ml Documented By: MIRNA Labs 07/12/24 08:25 07/12/24 08:25 Microbiology Microbiology Results: Microbiology 07/12/24 08:25 Blood Culture - Preliminary Blood - Venous No growth after 48 hours. 07/12/24 10:11 Gram Stain - Final Face Routine Culture - Final No growth after 2 days Assessment and Plan (1) Dog bite: Status: Acute (2) Cellulitis of face: Status: Acute (3) Generalized anxiety disorder: Status: Acute Plan 34yo F with anxiety/depression presenting with worsening R face wound after bit by her dog 07/10/24, failed outpt therapy with TMP-SMX and metronidazole; admitted for R facial cellulitis R facial cellulitis due to dog bite - continue piperacillin-tazobactam 07/12- and giving diphenhydramine prior to each dose given hx rash to amoxicillin - wound and blood cultures showed no growth Seen by General surgery small amount pus squeezed with pressure no abscess was appreciated Will apply hot pack to localized swelling d/c home tomorrow on amoxicillin-clavulanate with diphenhydramine [give 1st dose in hospital prior to d/c] if noted to have improvement in localized swelling. anxiety/depression - continue bupropion, escitalopram VTE prophylaxis - enoxaparin dispo - eventual home In my clinical judgment, the patient requires continued inpatient hospitalization for the following reasons: IV ABX Quality Stroke Does the patient have a stroke diagnosis?: No VTE Prior VTE?: No VTE Risk Level:: Medical - moderate - high VTE Device Contraindication: Treatment Not Indicated VTE Drug Contraindication: N/A - Med Ordered
[2024-07-14 19:25] VITALS: BP 103/73; PULSE 89; RESP 20; TEMP 36.1; O2SAT 98
[2024-07-15] MEDS: diphenhydrAMINE HCL 50 MG/ML VIAL 25 MG IVPUSH ×2 (02:14→08:32)
[2024-07-15] MEDS: Piperacillin Sodium/Tazobactam 3.375 GM in 0.9 % Sodium Chloride 50 ML IV ×2 (02:14→08:32)
[2024-07-15 03:16] VITALS: BP 107/64; PULSE 91; RESP 18; TEMP 36.5; O2SAT 95
[2024-07-15 07:28] VITALS: BP 112/71; PULSE 86; RESP 16; TEMP 36.2; O2SAT 97
[2024-07-15] MEDS: Escitalopram Oxalate 20 MG TABLET 40 MG PO (08:32)
[2024-07-15] MEDS: 0.9 % Sodium Chloride Flush 3 ML SYRINGE IVFLUSH (08:32)
[2024-07-15] MEDS: buPROPion HCl XL 150 MG TAB.ER.24H PO (08:32)
--- NOTE | 2024-07-15 10:37 | PM.DS ---
DS: Providers Provider Date of Service: 07/15/24 Date of admission: 07/12/24 12:27 Date of discharge: 07/15/24 Primary care physician: Philomena Burks PA-C Consults: 07/13/24 14:30 Consult to Wound Care Routine Reason for consultation: right facial cellulitis d/t dog bite 07/14/24 09:51 Consult to General Surgery Routine Consulting Provider: [facility] [place] [facility] Reason for consultation: rt facial swelling/dog bite ? abscess Has provider been notified: No DS: Diagnosis Discharge Diagnosis (1) Dog bite: Status: Acute (2) Cellulitis of face: Status: Acute (3) Generalized anxiety disorder: Status: Acute DS: Summary Hospital Course Hospital Course: History of presenting illness Date of Service: 07/12/24 Attending physician on admission: Tish Michelle Chief Complaint: Dog bite Pt is a 34-year-old female with a PMH significant for?anxiety and depression who presents to the ED with?for evaluation of worsening right face wound. Injury was sustained 2 days prior on 07/10 when she went to kiss her sleeping dog on the head and he woke up and snapped her, breaking the skin under her right eye. Pt initially presented to the ED for evaluation where she did not require sutures. Pt was sent home on Flagyl and Bactrim due to a childhood allergy (rash) to amoxicillin. Despite taking antibiotics as prescribed, pt reports wound worsened, feeling warm, having pus-like drainage, and had subjective fever, chills, and headache. Denies any significant pain. No acute vision changes. Denies pain with eye movement. No nausea, vomiting, abdominal pain. Pt reports that both she and her dog are up to date on all vaccinations. Of note, pt was given Benadryl 25 mg prior to administration of Zosyn earlier this morning in the ED. pt tolerated this regimen well without any adverse reaction including rash. Pt denies pruritus, difficulty breathing, chest or throat tightness. In the ED pt was tachycardic up to 115, vitals otherwise stable and WNL. Labs were grossly unremarkable and around baseline for pt. No leukocytosis. Stable H&H. No significant electrolyte abnormalities. Renal function baseline. Hepatic function WNL. CRP mildly elevated at 0.61. CT of face with findings consistent with right facial cellulitis without evidence of abscess. Pt was treated with lorazepam, Benadryl, and Zosyn. Pt will be admitted to the hospital for treatment and further evaluation of right facial cellulitis secondary to dog bite that failed outpatient therapy. Hospital course: 34yo F with anxiety/depression presenting with worsening R face wound after bite by her dog 07/10/24, failed outpt therapy with TMP-SMX and metronidazole; admitted for R facial cellulitis R facial cellulitis due to dog bite admitted to medical floor treated with IV Zosyn and Benadryl prior to each dose given history of rash to amoxicillin, wound and blood culture showed no growth, seen by General surgery no abscess was appreciated, since swelling has significantly improved with no fevers, normal WBC count ,she has been discharged home on Augmentin and Benadryl for 4 more days. anxiety/depression - continue bupropion, escitalopram. Time Attestation Discharge Coordination Time (in mins): 40 Quality: Safe Use of Opioids Does Pt have an Active Cancer Diagnosis on the Problem List?: No Quality: Stroke Does the patient have a stroke diagnosis?: No Physical Exam Vital Signs: Vital Signs: Last Vital Signs Temp 97.1 F 07/15/24 07:28 Pulse 86 07/15/24 07:28 Resp 16 07/15/24 07:28 BP 112/71 07/15/24 07:28 Pulse Ox 97 07/15/24 07:28 O2 Del Method Room Air 07/15/24 07:28 BMI result Body Mass Index 33.2 Const: Other: Gen: in no acute distress HEENT: sclera anicteric, moist mucus membranes Neck: supple Lungs: clear to auscultation bilaterally Heart: regular rate and rhythm, no murmurs Abd: soft, non-tender, non-distended Ext: no edema Skin: warm/well-perfused, bite deyanira to R cheek with minimal erythema and localized swelling improved. Neuro: alert and oriented x3, no focal findings Psych: appropriate affect DS: Data Data Completed and Pending Labs on day of discharge: Preliminary micro results at discharge 07/12/24 08:25 Blood Culture - Preliminary Blood - Venous No growth after 48 hours. Discharge Plan Discharge Anticipated Discharge Date/Time: 07/15/24 10:33 Patient Disposition: Home, Self-Care Discharge Diagnosis: Right facial cellulitis due to dog bite Referrals: Javid Andrade MD [Physician] - 1 Week Philomena Burks PA-C [Primary Care Provider] - 1 Week Discharge Medications: New diphenhydramine HCl [Benadryl Allergy] 25 mg tablet 25 mg PO BID Qty: 8 0RF amoxicillin-pot clavulanate 875-125 mg tablet 1 tab PO BID Qty: 8 0RF Continued bacitracin 500 unit/gram ointment 1 appl topical BID Qty: 30 0RF escitalopram oxalate 20 mg tablet 40 mg PO DAILY bupropion HCl 150 mg tablet extended release 24 hr 150 mg PO DAILY Discontinued sulfamethoxazole-trimethoprim [Bactrim DS] 800-160 mg tablet 1 tab PO Q12H 7 Days Qty: 14 0RF metronidazole 500 mg tablet 500 mg PO Q8H 7 Days Qty: 21 0RF Discharge Orders: Discharge Order (Routine); Ordered 07/15/24 Ordered By: Verena Wilson Diet: Advance to usual diet Activity on Discharge: As tolerated Stand Alone Forms: Patient Portal Discharge page Print Language: Kazakh Care Plan Goals: Take Augmentin 1 tablet twice daily for 4 more days Take Benadryl 25 mg 1 tablet before Augmentin twice daily for 4 more days Returned to check if noted worsening redness swelling, fevers or any acute issues. Health Concerns: Continue all home medications Plan of Treatment: Outpatient follow-up with primary care physician call for appointment Assessment: As above
--- NOTE | 2024-07-15 10:57 | MHC.CM.PN ---
pt dCd home self care
[2024-07-15] MEDS: Amoxicillin/Potassium Clav 875 MG TABLET PO (11:05)
[2024-07-15] MEDS: diphenhydrAMINE HCL 25 MG CAPSULE PO (11:05)
== END 2024-07-15 11:35 | disposition home or self-care (01) | DRG 603 ==
LOC: HO.ED 10:57 → HO.EDOVER 12:28 → HO.S3 07-13 10:41
PROVIDERS: Physician Assistant Medical; Admitting Provider Student in an Organized Health Care Education/Training Program; Emergency Provider Emergency Medicine; PCP Registered Nurse; Visit Provider Hospitalist
DX: L03.211 Cellulitis of face (principal); F32.A Depression, unspecified; S00.271A Other superficial bite of right eyelid and periocular area, initial encounter; W54.0XXA Bitten by dog, initial encounter; F41.1 Generalized anxiety disorder; Z79.899 Other long term (current) drug therapy
CPT/HCPCS: 36415; 70487; 80053; 83605; 84702; 85025; 85652; 86140; 87040; 87070; 87205; 99285; J1200; J1650; J2060; J2543; Q9967

== ENCOUNTER → 2024-07-12 08:07 | Outpatient (BNV) | payer OTHER, SELFPAY | PROVIDERS: Emergency Provider Emergency Medicine; PCP Registered Nurse; Visit Provider Radiology Diagnostic Radiology | DX: L02.01 Cutaneous abscess of face (principal) | CPT/HCPCS: 70487 ==

== ENCOUNTER → 2024-07-12 12:27 | Outpatient (BNV) | payer OTHER, SELFPAY | PROVIDERS: Admitting Provider Student in an Organized Health Care Education/Training Program; Emergency Provider Emergency Medicine; PCP Registered Nurse; Visit Provider Surgery | DX: L03.211 Cellulitis of face (principal); W54.0XXA Bitten by dog, initial encounter | CPT/HCPCS: 99222 ==

== ENCOUNTER → 2024-07-12 12:27 | Outpatient (BNV) | payer OTHER, SELFPAY | PROVIDERS: Admitting Provider Student in an Organized Health Care Education/Training Program; Emergency Provider Emergency Medicine; PCP Registered Nurse; Visit Provider Student in an Organized Health Care Education/Training Program | DX: L03.211 Cellulitis of face (principal); W54.0XXA Bitten by dog, initial encounter | CPT/HCPCS: 99222; 99232; 99239 ==

== ENCOUNTER 2024-07-24 08:58 | Outpatient (AMB) | payer OTHER, SELFPAY ==
--- NOTE | 2024-07-24 09:05 | MHC.OFFVIS ---
Intake Visit Reasons: facial cellulitis from dog bite Allergies amoxicillin Allergy (Verified 07/12/24 07:01) Rash HPI Comments Details: Patient is here status post right face dog bite for which she was admitted for local wound care in cellulitis. She is doing well. Aside from residual swelling, she has no other wound issues or complaints. [facility] Medical History Recurrent major depressive episodes, moderate (02/16/22) Generalized anxiety disorder (02/16/22) Anxiety state (11/15/13) Adjustment disorder with mixed emotional features (04/27/22) Social History Household Members: Significant Other Housing: Homeless Do you presently have visiting nurse or other home services: No Unable to assess alcohol history related to: Unable to respond Patient Tobacco Use Status: Never used Tobacco Substance Use Type: Marijuana service: No Physical Exam HEENT Other: Right upper cheek bite site is completely healed. Patient has some inferior hematoma in the soft tissue of the mid face but was reassured that this will eventually resolve. Assessment & Plan Assessment & Plan (1) Dog bite: Code(s): W54.0XXA - Bitten by dog, initial encounter Category: Surgical (2) Encounter for post-traumatic wound check: Code(s): Z51.89 - Encounter for other specified aftercare Category: Surgical Plan Patient has been given local instructions including avoiding touching the area, where hat and sun block to avoid the sun as warm weather approaches and will otherwise follow-up p.r.n.. All questions answered. Coding Level of Care Code Est Pt Level 4 (99922) Diagnoses Dog bite W54.0XXA Encounter for post-traumatic wound check Z51.89
--- OUTSIDE RECORDS SUMMARY | 2024-07-24 09:48 | XMS_ITS | Data Portability ---
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 Patient consented to video & audio visit Patient was located in the [facility]. Provider was located in the office. No other persons participated in the telemedicine visit except for the patient unless otherwise indicated here. {{}} Total time of visit was 18 minutes. [email or web address] Not available 08/17/2022 09:57:05 09/28/2022 09/28/2022 This service was provided using telemedicine. Patient consented to video & audio visit Patient was located in the [facility]. Provider was located in the office. No other persons participated in the telemedicine visit except for the patient unless otherwise indicated here. {{}} Total time of visit was 18 minutes. [email or web address] Not available 09/28/2022 10:45:26 12/28/2022 12/28/2022 This service was provided using telemedicine. Patient consented to video & audio visit Patient was located in the [facility]. Provider was located in the office. No [...] , serum 2023 [id number] [facility], [address] [facility] [facility] [address], [place], [address], 07/13/2023 11:22:38 CMP, serum or plasm a 2023 [id number] [email or web address], [address] [facility], [facility] [address], [place], [address], 02/08/2024 09:34:58 CBC w/ auto diff 2023 [id number] [email or web address], [address] [facility], [facility] [address], [place], [address], 02/08/2024 09:34:59 TSH, serum or plasm a 2023 [id number] [facility], [address] [place] [address], [facility] [address], [place], [address], 07/13/2023 11:22:[address] st refer ral - brandan rns for ADHD, inatt entio n, diff brandan ntrat ing, finis mariya tasks . has anxie ty and depre ssion / grief . 2023 024 [email or web address] [facility], [address], [place], [address], 01/09/2024 09:58:35 Procedures None recor ded. Surgeries None recor ded. Imaging None recor ded. Medication Orders escit alopr am 20 mg table t 2022 023 [facility][id number], [address] [facility], [place], [place], [id number], 12/28/2022 10:41:51 bupro pion HCl XL 150 mg 24 hr table t, exten ded relea se 2022 023 [id number], [address] [place], [place], [phone], 09/28/2022 10:45:15 sumat ripta n 50 mg table t 2022 023 [facility] #[id number], [address] [place], [place], [id number], 08/17/2022 09:52:11 bupro pion HCl XL 150 mg 24 hr table t, exten ded relea se 2022 023 [facility] #[id number], [address] [place], [place], [id number], 08/17/2022 09:50:40 Patient TargetsNo targets recorded. Patient Instructions Encounter Date Encounter Id Patient Instructions Last Modified By Organization Details Last Modified Time 08/17/2022 [id number] anxiety disorder : care instructions [email or web address] Not available 08/17/2022 09:53:01 depression treatment: care instructions [email or web address] Not available 08/17/2022 09:53:01 call or return for worsening or concerns [email or web address] Not available 08/17/2022 09:52:24 09/28/2022 [id number] anxiety disorder : care instructions [email or web address] Not available 09/28/2022 10:45:07 depression treatment: care instructions [email or web address] Not available 09/28/2022 10:45:07 12/28/2022 [id number] anxiety disorder : care instructions [email or web address] Not available 12/28/2022 10:42:35 depression treatment: care instructions [email or web address] Not available 12/28/2022 10:42:36 To call or retur n for worsening or concerns [email or web address] Not available 12/28/2022 10:42:18 07/13/2023 [id number] adjustment disorder: care instructions [email or web address] Not available 07/13/2023 11:22:20 grief (actual/anticipat ed): care instructions [email or web address] Not available 07/13/2023 11:22:19 To call or retur n for worsening or concerns [email or web address] Not available 07/13/2023 11:21:20 Reason for Referral Neuropsychologist Referral f or Inattention concerns for ADHD, inattention, diff concentrating, finishing tasks. has anxiety and depression/ grief. Referring Physician: Jed Burks, Family Medicine, Encounter Date: 07/13/2023 Results Created Date Observation Date Name Description Value Unit Range Abnormal Flag Note LastModifiedBy Organization Detail LastModifiedTime 07/12/1907/12/2024 imagi ng/di agnos tic resul t No observ ation record ed. [facility] (Medical Records) [address] [place], [address], 07/12/2024 11:31:55 Result Notes None recorded. Problems Name Problem SNOMED Code Status Onset Date Resolution Date Notes Provider Name and Address Organization Details Recorded Time Anxiety state 489908737 Active 2013 Not Available [facility] 3 08:14:25 Follow-u p encounte r Completed 201204/17/2018 AISLINN Juan [facility] 8 13:22:04 Adult health examinat ion Active 2013 Not Available [facility] 3 08:14:25 Administ ration of diphther ia and tetanus vaccine Completed 201104/17/2018 AISLINN uJan [facility] 8 13:21:58 Screenin g for malignan t neoplasm of cervix Completed 201304/17/2018 AISLINN Juan [facility] 8 13:22:10 Follow-u p encounte r Completed 201301/06/2014 RECORDED 11/16/19 14 2:06PM BY STEPH BRYAN MA, ANNOTATI ON/ADDEN DUM AISLINN Juan [facility] 8 13:22:04 Tobacco user 465726310 Completed 201304/17/2018 AISLINN Juan, [facility] 8 13:33:07 History of clinical finding in subject 195016771 Completed 201304/17/2018 AISLINN Juan, [facility] 8 13:22:01 Overwe[place] ht 349053870 Active 2013 Not Available [facility] 3 08:14:25 Administ ration of diphther ia and tetanus vaccine Completed 201301/06/2014 RECORDED 11/16/19 14 2:06PM BY STEPH BRYAN MA, ANNOTATI ON/ADDEN DUM AISLINN Juan, [facility] 8 13:21:58 Headache 79986291 Active Not Available [facility] 3 08:14:25 Ex-smoke r 2814281 Active 2017 Not Available [facility] 3 08:14:25 COVID-19 472105575 Active 2021May 2021 Not Available [facility] 3 08:14:25 Administ ration of viral vaccine Active 2021 Not Available [facility] 3 08:14:25 Generali zed anxiety disorder 20556666 Active 2021 Not Available [facility] 3 08:14:25 Recurren t major depressi ve episodes , moderate 461246193 Active 2021 Not Available [facility] 3 08:14:25 Adjustme nt disorder with mixed emotiona l features 65967163 Active 2021 Not Available [facility] 3 08:14:25 Fatigue 25720601 Active 2022 Not Available [facility] 3 08:14:25 Inattent ion 10719326 Active 2023 Jed Burks, [facility] [address] [address], [facility] [place], [address] , [facility] 4 11:23:07 Problem Notes None recorded. Procedures Surgical History Date Name Laterality Status Provider Name and Address Organization Details Recorded Time 08/16/2020 Date of Last Pap Smear completed DAVIS Perkins [address] [facility] [address], [place], [address], [place] [facility] 07/13/2023 11:20:10 No surg proc w/in 30 days completed Steph casey [place] [facility] 04/17/2018 13:35:22 Imaging Results Imaging Date Name Status LastModified by Organiz ation Details LastModified Time 07/12/2024 imaging/diagn ostic result active [facility] (Medical Records) [address] [place], [address], 07/12/2024 11:31:55 Procedure Notes None recorded. Medical Equipment None Reported. Allergies Allergen ID Allergen Name Allergen Category Reaction Reaction Severity Criticality Documentation Date Start Date Code Code System Note Provider Name and Address Organization Details Recorded Time amoxicill in medicatio n rash Not available Not available 06/03/2015 723 RxNorm Mary Alice morris, [facility] 6 14:22:51 Medications Name Sig Start Date [...] Not Available Not Available Not Avai lable metronidazo le 500 mg tablet TAKE 1 TABLET BY MOUTH EVERY 8 HOURS FOR 7 DAYS 07/18 completed Not Available Not Available Not Available bacitracin zinc 500 unit/gram topical ointment APPLY 1 APPLICATI ON TOPICALLY TWICE DAILY active Not Available Not Available No t Available sulfamethox azole 800 mg-trimetho prim 160 mg tablet TAKE 1 TABLET BY MOUTH EVERY 12 HOURS FOR 7 DAYS 07/18 completed Not Available Not Available Not Available lorazepam 0.5 mg tablet TAKE 1 TABLET BY MOUTH TWICE DAILY FOR 15 DAYS DIRECTED 04/27 completed Not Available Not Available Not Available diphenhydra mine 25 mg tablet Take 1 tablet twice a day by oral route for 4 days. 07/18 completed Not Available Not Available Not Available [...] Not Available Not Available No t Available amoxicillin 875 mg-potassiu m clavulanate 125 mg tablet TAKE 1 TABLET BY MOUTH TWICE DAILY active Not Available Not Available No t Available hydroxyzine pamoate 25 mg capsule TAKE 1 CAPSULE BY MOUTH FOUR TIMES DAILY NEEDED 09/28 completed Not Available Not Available Not Available Cryselle (28) 0.3 mg-30 mcg tablet Take 1 tablet every day by oral route. 04/17 completed Not Available Not Available Not Available escitalopra m 10 mg tablet TAKE 1 TABLET BY MOUTH DAILY active Not Available Not Available No t Available escitalopra m 20 mg tablet TAKE 2 TABLETS BY MOUTH EVERY DAY DIRECTED active Not Available Not Available No t Available bupropion HCl XL 150 mg 24 hr tablet, extended release TAKE 1 TABLET BY MOUTH EVERY DAY DIRECTED 2024 active Not Available Not Available Not Avai lable Vitals Date Recorded Body height Provider Name an d Address Organization Details Last Updated DateTime 08/17/2022 153.67 cm AISLINN Hester [facility] 08/17/2022 09:36:37 Date Recorded Body height Provider Name an d Address Organization Details Last Updated DateTime 09/28/2022 153.67 cm AISLINN Prieto [facility] 09/28/2022 10:39:24 Date Recorded Body height Provider Name an d Address Organization Details Last Updated DateTime 12/28/2022 153.67 cm Mell Martinez MA [facility] 12/28/2022 10:26:39 Date Recorded Body height Body mass index (BMI) Body weight Oxygen saturation Oxygen saturation in Arterial blood by Pulse oximetry Heart rate Body temperature Systolic blood pressure Diastolic blood pressure Provider Name and Address Organization Details Last Updated DateTime 4 153.67 cm 33.4 kg/m2 06390.7 7 g 98 % 98 % 89 /min 97.7 [degF] 113 mm[Hg] 74 mm[Hg] Mell Martinez MA [facility] 4 11:04:58 Social History Question Answer Notes LastModified by Organizat ion Details LastModified Time Tobacco Smoking Status Former Smoker [facility] 04/17/2018 13:35:09 Do You Have An Advance Directive? No HCP Declined [email or web address] Information not available 06/29/2021 What Is Your Level Of Alcohol Consumption? Occasional [email or web address] Information not available 07/13/2023 Is Blood Transfusion [...] COVID-19 While That Case Was Ill? No [email or web address] Information not available 06/29/2021 In The 14 Days Before Symptom Onset, Have You Had Close Contact With A Person Who Is Under Investigation For COVID-19 While That Person Was Ill? No [email or web address] Information not available 06/29/2021 Have You Been To An Area Known To Be High Risk For COVID-19? No [email or web address] Information not available 06/29/2021 Are You Currently Employed? Yes Information not available 06/03/2015 What Type Of Diet Are You Following? REGULAR Information not available 04/17/2018 Which Illicit Or Recreational Drugs Have You Used? Marijuana Information not available 07/01/2022 Do You Or Have You Ever Used E-cigarettes Or Vape? 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 1-5yearssince carol [email or web address] Information not available 06/29/2021 Live Alone Or [...] Of Your Most Recent Tobacco Screening? 07/13/2023 [email or web address] Information not available 07/13/2023 Do You Use Protection During Sex? No Information not available 04/17/2018 Seat Belts Used Routinely Yes [email or web address] Information not available 06/29/2021 Are You Sexually Active? Yes Information not available 04/17/2018 Smoke Alarm In Home No [email or web address] Information not available 06/29/2021 At What Age Did You Start Smoking Tobacco? 16 Quit At 18 Information not available 04/17/2018 Are You Passively Exposed To Smoke? No Information not available 04/17/2018 Do You Or Have You Ever Used Smokeless Tobacco? Never Used Smokeless Tobacco [email or web address] Information not available 04/14/2020 How Much Tobacco Do You Smoke? 1 PPW Social Smoker [email or web address] Information not available 04/14/2020 Do You Use Any Illicit Or Recreational Drugs? Yes Information not available 07/01/2022 Do You Use Sunscreen Routinely? Yes Information not available 04/17/2018 How Many Years Have You Smoked Tobacco? 2 Information not available 04/14/2020 Sex: Female Functional Status Question Answer Note LastModified by Organizat ion Details LastModified Time Are you able to walk? YESWOREST [email or web address] Information not available 06/29/2021 Are you able to care for yourself? Yes Information not available 06/03/2015 What is your exercise level? Occasional Information not available 04/17/2018 Mental Status None recorded. Family History Relationship Description Onset Age of this Age Resolved Age Notes LastModified by Organization Details LastModified Time Paternal Grandmother Diabetes mellitus [email or web address] Not available 2015 14:22:26 Father Excision of melanoma [email or web address] Not available 06/29 10:52:43 Mother Depressive disorder [email or web address] Not available 06/29 11:05:33 Mother Failure to [...] mL dose 10/13/19 21 completed Not Available [facility] 12/06/2022 08:14:25 COVID-19, mRNA, LNP-S, PF, 30 mcg/0.3 mL dose 09/22/19 21 completed Not Available [facility] 12/06/2022 08:14:25 Tdap 06/29/19 22 completed Not Available [facility] 12/06/2022 08:14:25 Influenza, split virus, quadrivalent, PF 04/17/20 18 cancelled patient objection Not Available [facility] 06/15/2019 02:22:15 Influenza, split virus, quadrivalent, PF 05/15/20 18 cancelled patient objection Not Available [facility] 06/15/2019 02:22:16 Tdap 01/25/20 12 completed Not Available [facility] 12/06/2022 08:14:25 DTaP 08/22/18 89 completed Not Available [facility] 12/06/2022 08:14:26 DTaP 10/22/18 89 completed Not Available [facility] 12/06/2022 08:14:26 DTaP 12/22/18 89 completed Not Available [facility] 12/06/2022 08:14:26 DTaP 06/24/18 91 completed Not Available [facility] 12/06/2022 08:14:26 DTaP 02/09/19 94 completed Not Available [facility] 12/06/2022 08:14:26 Tdap 09/04/19 06 completed Not Available [facility] 12/06/2022 08:14:25 Hep B, adult 09/21/19 00 completed Not Available [facility] 12/06/2022 08:14:25 Hep B, adult 11/01/19 00 completed Not Available [facility] 12/06/2022 08:14:25 Hep B, adult 02/20/20 01 completed Not Available [facility] 12/06/2022 08:14:25 Hib (HbOC) 06/24/18 91 completed Not Available [facility] 12/06/2022 08:14:26 MMR 10/05/18 90 completed Not Available [facility] 12/06/2022 08:14:25 MMR 09/21/19 00 completed Not Available [facility] 12/06/2022 08:14:25 IPV 08/22/18 89 completed Not Available [facility] 12/06/2022 08:14:25 IPV 10/22/18 89 completed Not Available [facility] 12/06/2022 08:14:25 IPV 12/22/18 89 completed Not Available [facility] 12/06/2022 08:14:25 IPV 06/24/18 91 completed Not Available [facility] 12/06/2022 08:14:25 IPV 02/09/19 94 completed Not Available [facility] 12/06/2022 08:14:25 Td (adult), 2 Lf tetanus toxoid, preservative free, adsorbed 09/21/19 00 completed Not Available [facility] 12/06/2022 08:14:25 varicella 01/10/19 98 completed Not Available [facility] 12/06/2022 08:14:25 Past Encounters Encounter ID Performer Location Encounter Start Date Encounter Closed Date Diagnosis/Indication Diagnosis SNOMED-CT Code Diagnosis ICD10 Code Diagnosis Note [id number] [facility] [address] [facility] [facility] [place] [address] 01/25/2012 00:00:00 [id number] [facility] [address] [facility] [facility] [place] [address] 11/15/2013 00:00:00 [id number] Benjamin Parkinson MD Main Office [address] [facility] [address] [facility] [address] 06/03/2015 13:54:11 06/03/2015 14:56:20 Headache 38770116 R51 2nd episode of headache with light [...] to pinpoint headache triggers and avoid these. [id number] Mega Talley MD Main Office [address] [facility] [address] [place] [address] 04/17/2018 13:10:22 04/17/2018 14:06:04 Adult health examination 759477184 Z00.00 HM UTD, she declines flu vaccine and lbs today. Immunization refused 275 821511 Z28.21 Headache 03948188 R51 Resolved after getting IUD. Anxiety 53621998 F41.9 Her TONG score is a 3, [...] If any problems please call or return. [id number] Jed Burks [facility] Main Office [address] [place] [address] 05/15/2018 12:46:08 05/15/2018 13:30:40 Needs influenza immunization 761170164 Z23 Anxiety state 316603457 F41.1 doing fairly well on 10mg escitalopr am, she wishes to stay on 10mg for now. will be due for refill next month and will call to let me know if she wants to increase the dose or stay at 10mg. also encouraged her to try taking med in the morning as she is having some trouble sleeping. [id number] [facility] Main [facility] [address] [place] [address] 01/28/2020 14:09:10 01/28/2020 14:47:41 Anxiety state 007527940 F41.1 will refill med, 10mg is working well for her. F/U in 2 months for PE. Major depr essive disorder 772384854 F32.0 [id number] Jed Burks [facility] Main Office [address] [place] [address] 04/14/2020 14:24:56 04/14/2020 15:02:19 Adult health examination 035250337 Z00.00 UTD, she declines flu vaccine today. Anxiety state 467685322 F41.1 doing ok, lexapro 10mg Abnormal weight gain 161 024592 R63.5 concerned about weight gain. she is eating poorly, not exercising , recommend quick HIIT workouts or short you tube videos. more walking / movement during free times. dietary changes Screening for cardiovascular system disease 322329480 Z13.6 [id number] DAVIS Perkins Main Office [address] [facility] [address] [place] [address] 06/29/2021 10:52:34 06/29/2021 11:54:02 Adult health examination 077894703 Z00.00 HM UTD, she declines flu vaccine today. due for pap, she will schedule. Anxiety state 854907836 F41.1 increase lexapro to 20mg he has been taking 20mg for a few months now. Screening for cardiovascular system disease 058602164 Z13.6 Screening for malignant neoplasm of cervix 851233415 Z12.4 Administra tion of viral vaccine 21705163 Z23 Headache 91858121 R51.9 sumatripta n as needed or migraines associated with menses every other period. Call/ return if not helpful. [id number] Jed Burks [address] [address] [place] [address] 02/16/2022 08:50:48 02/16/2022 15:56:25 Generalized anxiety disorder 75996880 F41.1 TONG score 6/21 Recurrent major depressive episodes, moderate 469132799 F33.1 PHQ-9 score 12/27. Her Mother is going on hospice and she is her HCP. will add lorazpeam to use as needed- no driving or alcohol with med, do not overuse med. [id number] Jed Burks [address] [facility] [address] 04/27/2022 08:30:12 04/27/2022 13:45:53 Generalized anxiety disorder 05124046 F41.1 TONG score 7/21. Anxiety is currently at very high levels. Her Mom is in her final stages of life, on hospice in a SNF. Patient is struggling with both anxiety and depression . Recurrent major depressive episodes, moderate 474087986 F33.1 PHQ-9 score 8/27. Her Mother is on hospice and she is her HCP. will add lorazepam to use as needed- no driving or alcohol with med, do not overuse med. Adjustment disorder with mixed emotional features 60513243 F43.23 grieving for her Mother. [id number] Jed Burks [facility] Main Office [address] [address] [place] [address] 07/01/2022 12:56:24 07/01/2022 13:51:24 Adult health examination 440555957 Z00.00 UTD Anxiety state 485508675 F41.1 lexapro is helpful but still struggling with panic attacks, will try hydroxyzin e as needed. Screening for cardiovascular system disease 504436886 Z13.6 Headache 31347544 R51.9 sumatripta n as needed for migraines associated with menses every other period. Call/ return if not helpful. Fatigue 16025438 R53.83 Adjustment disorder with mixed emotional features 14445452 F43.23 grieving for her Mother. [id number] Jed Burks [facility] [address] [address] 08/17/2022 08:43:12 08/17/2022 11:04:33 Recurrent major depressive episodes, moderate 240817356 F33.1 Do not miss doses or stop medication s abruptly. Start wellbutrin in am, it can be activating and cause vivid dreams. Generalize d anxiety disorder 97558662 F41.1 continue lexapro as directed, hydroxyzin e as needed. Headache 00657089 R51.9 sumatripta n as needed for migraines associated with menses every other period. Call/ return if not helpful. [id number] Jed Burks [facility] [address] [address] [place] [address] 09/28/2022 09:59:14 09/28/2022 10:49:55 Recurrent major depressive episodes, moderate 060175986 F33.1 Do not miss doses or stop medication s abruptly. continue wellbutrin in am, it can be activating and cause vivid dreams. Generalize d anxiety disorder 88628237 F41.1 continue lexapro as directed. Headache 93331994 R51.9 sumatripta n as needed for migraines associated with menses every other period, sumatripot an seemed helpful around her period. [id number] [facility] [address] [facility] [address] [place] [address] 12/28/2022 10:01:54 12/28/2022 11:15:17 Recurrent major depressive episodes, moderate 060725761 F33.1 Do not miss doses or stop medication s abruptly. continue wellbutrin in am, it can be activating and cause vivid dreams. Generalize d anxiety disorder 75267566 F41.1 continue lexapro as directed. [id number] Jed Burks [facility] Main Office [address] [place] [address] 07/13/2023 10:57:35 07/13/2023 11:31:36 Adult health examination 248656243 Z00.00 HM UTD, due for pap this year Anxiety state 497803041 F41.1 continue lexapro and bupropion Screening for cardiovascular system disease 048898851 Z13.6 Headache 15648450 R51.9 sumatripta n as needed for migraines associated with menses every other period. Call/ return if not helpful. Fatigue 50036543 R53.83 Adjustment disorder with mixed emotional features 78704145 F43.23 grieving for her Mother and now her dog Inattention 01827285 R41 .840 bupropion has not helped with her feelings of inattentio n, she would like to have neuropsych eval. Recurrent major depressive episodes, moderate 925832994 F33.1 Do not miss doses or stop [...] Member ID Gan Member ID Guarantor Name 08/17/2022 1 [facility] [employer] (O) [id number] Ros Collins [id number] 1 Ros Collins 09/28/2022 1 [employer] ([facility]) [id number] Ros Collins [id number] 1 Ros Collins 12/28/2022 1 [facility] ([facility]) [id number] Ros Collins [id number] 1 Ros Collins 07/13/2023 1 [facility] ([facility]) [id number] Ros Collins [id number] Ros Collins Notes Date Note Type Note Provider Name and Address Organization Details Recorded Time 08/17/2022 text/html Generic HPI TemplateReported bypatient.Notes:Video visit: Patient's Mom recently and she was her health care proxy, was very difficult for her. Her Dad is in [facility] for 2 years- arrested in april.Having a [...] is supportive.- Wants to discuss adding wellbutrin. DAVIS Perkins [address], [address], [facility] 08/17/2022 09:57:38 09/28/2022 text/html Generic HPI TemplateReported bypatient.Notes:Video visit: Patient's Mom recently and she was her health care proxy, was very difficult for her. Her Dad is in [facility] for 2 years- arrested in april.Having a [...] day, focusing a bit better. DAVIS Perkins [address], [place], [address], [facility] 09/28/2022 10:48:14 12/28/2022 text/html Generic HPI TemplateReported bypatient.Notes:Video visit: Patient's Mom recently and she was her health care proxy, was very difficult for her. Her Dad is in [facility] for 2 years- arrested in april.Having a [...] tell when she does.TONG score down to 2/21 and PHQ-9 02/22.Trying to enjoy summer. Sleeping ok, feels it will get better once she is back on track. Sleeps but not quality sleep. Jed Burks, [facility] [address] [facility] [address], [place], [address], [facility] 12/28/2022 10:50:00 07/13/2023 text/html Generic HPI TemplateReported bypatient.Notes:Prescasey tse for PE.Mom was on hospice and in april 29, 2022. Has been struggling, comes and goes, some days better than others. Has a good support system. Her Dad is also in [place], the day after her Mom he was arrested for stealing money.- Has sx of poor concentration, sometimes diff finishing tasks, feels all over the place, more heightened - Her dog before Thanksgiving, struggling with good and bad days, back on 20mg lexapro. Jed Burks, [facility] [address] [facility] [address], [place], [address], [facility] 07/13/2023 11:57:41 OBGyn Episode No OBEpisode recorded.
--- OUTSIDE RECORDS SUMMARY | 2024-07-24 09:48 | XMS_ITS | Patient Health Record ---
Author Organization [facility] Address [address] [place] [address] Care Team Providers Care Cat And Dog Bather Name Role Phone JED ESCOBAR Primary Care Provider Unavail able Elizabeth Madsen Unavailable [phone] Allergies Allergen (clinical drug ingredient) Drug/Non Drug [...] Risk Notes Problem Excessive and frequent menstruation (519191060) Excessive and frequent menstruation with regular cycle (N92.0) Active confirmed Problem Sexually transmitted infectious disease (6755148) Encounter for screening for infections with a predominantly sexual mode of transmission (Z11.3) Active confirmed Problem Atypical glandular cells on cervical Papanicolaou smear (439817097) Abnormal glandular Papanicolaou smear of cervix (795.00) Active confirmed Diag Problem Gynecological examination normal (976872127120864) Routine gynecological examination (V72.31) Active confirmed Major Plan Of Treatment Pending Test Test Name Order Date Test, Urine 06/19/2018 Insurance Providers Payer Name Payer Address Payer Phone Subscriber Number Group Number Insured Name Patient Relationship to Insured Coverage Start Date Coverage End Date [employer] [address] [place] [address] [phone] [id number] ERICH HOUSER Self - patient is the [...] encounter T19.2XXA Surgical History Surgery Date(Month/Year) Colposcopy [place]
== END 2024-07-24 09:10 | disposition home or self-care (01) ==
PROVIDERS: PCP Registered Nurse; Visit Provider Surgery
DX: L03.211 Cellulitis of face (principal); W54.0XXA Bitten by dog, initial encounter; Z51.89 Encounter for other specified aftercare
CPT/HCPCS: 99213